=== PATIENT | male | born 1945 | race Caucasian/White ===

== ENCOUNTER 2016-05-03 10:53 | Inpatient (IN) ==
[2016-05-03] MEDS ORDERED: 0.9 % Sodium Chloride 1,000 ML IVC ONE (11:37)
[2016-05-03 11:49] LABS: Basophils % 0.3 %; Eosinophils # 0.2 K/mcL (0.0-0.6); Eosinophils % 1.5 %; Hematocrit 38.1 % (37.5-50.1); Hemoglobin 13.6 g/dL (12.9-16.9); Immature Granulocytes % 0.3 % (0-4); Lymphocytes # 1.3 K/mcL (0.6-4.6); Lymphocytes % 13.1 %; Mean Corpuscular HGB Conc 35.7 g/dL (31.6-35.5); Mean Corpuscular Hemoglobin 31.6 pg (28.0-33.3); Mean Corpuscular Volume 88.4 fL (83.0-100.0); Mean Platelet Volume 9.2 fL (9.4-12.4); Monocytes # 0.7 K/mcL (0.0-1.3); Monocytes % 7.5 %; Neutrophils # 7.5 K/mcL (1.6-8.9); Platelet Count 156 K/mcL (140-400); Red Blood Count 4.31 M/mcL (4.19-5.50); Red Cell Distribution Width 13.2 % (11.5-14.5); Segmented Neutrophils % 77.3 %
--- NOTE | 2016-05-03 11:54 | Emergency Department Note ---
Disposition Clinical Impression: Candidiasis of mouth Failure to thrive Qualifiers: Failure to thrive age range: in adult Qualified Code(s): R62.7 - Adult failure to thrive Dysphagia Qualifiers: Dysphagia type: other dysphagia Qualified Code(s): R13.19 - Other dysphagia Disposition: Admitted As Inpatient [facility] [Primary Care Provider[facility] - Forms: ED Satisfaction Letter Weakness HPI - General Chief complaint: ED Shortness of Breath/Dyspnea Stated complaint: decreased intake, CA patient Time Seen by Provider: 05/03/16 11:10 Source: patient Limitations: physical limitation Nursing Notes Reviewed: Yes Vital Signs Reviewed: Yes - History of Present Illness HPI Narrative: Patient is a 70-year-old male who is being treated for tonsillar cancer is complaining of inability to swallow and decreased by mouth intake. Onset (ago): day(s) (2) Duration: constant, gradually worsening Location: other (mouth/throat) Pain Scale: 3 Improves with: none Worsens with: none Context: history of similar Associated symptoms: Reports: loss of appetite. Denies: chest pain, dark stools , diaphoresis, nausea/vomiting, rash, shortness of breath - Related Data Home Medications Medication Instructions Recorded Confirmed Amlodipine Besylate/Benazepril 1 each PO DAILY 12/24/14 02/05/16 [Lotrel 10-20 mg Capsule] Aspirin Enteric Coated [Aspirin EC] 81 mg PO DAILY 12/24/14 02/05/16 Atorvastatin Calcium [Lipitor] 40 mg PO DAILY 12/24/14 02/05/16 Carvedilol [Coreg] 6.25 mg PO BID 12/24/14 02/05/16 Cholecalciferol (Vitamin D3) 1,000 unit PO DAILY 12/24/14 02/05/16 [Vitamin D3] Furosemide [Lasix] 40 mg PO DAILY 12/24/14 02/05/16 Lisinopril [Zestril] 40 mg PO DAILY 12/24/14 02/05/16 Magnesium Oxide [Magnesium] 400 mg PO DAILY 12/24/14 02/05/16 Potassium Chloride 10 meq PO NOW 12/24/14 02/05/16 Terazosin [Hytrin] 2 mg PO HS 12/24/14 02/05/16 Carvedilol [Coreg] 6.25 mg PO DAILY 12/26/15 02/05/16 Previous Rx's Medication Instructions Recorded Aspirin 81 mg PO DAILY tab.chew 12/25/14 Folic Acid 1 mg PO DAILY tablet 12/25/14 Dexamethasone [Decadron] 8 mg PO DAILY #24 tab 01/15/16 OLANZapine [Zyprexa] 5 mg PO HS #15 tablet 01/15/16 Omeprazole [PriLOSEC] 40 mg PO DAILY #30 capsule. 01/15/16 Ondansetron HCl 8 mg PO Q8H PRN #60 tablet 01/15/16 FentaNYL PATCH [Duragesic] 12 mcg TD Q72H #10 patch.td72 02/20/16 Polyethylene Glycol 3350 [MiraLAX 1 scoop PO DAILY #510 gm 02/20/16 Powder Bulk 17.9 Oz] Fluconazole [Diflucan] 100 mg PO DAILY #8 tablet 03/06/16 Lidocaine Viscous Oral Soln 15 ml MM QID PRN #100 ml 03/19/16 Magic Mouthwash 10 ml PO QID PRN #400 ml 03/19/16 Oxycodone HCl/Acetaminophen 1 each PO Q6H PRN #90 tablet 03/19/16 [Percocet 5-325 mg Tablet] Allergies Allergy/AdvReac Type Severity Reaction Status Date / Time No Known Allergies Allergy Verified 12/23/14 21:57 All systems ED: reviewed and negative except as stated. Constitutional: Reports: weakness. Denies: fever, chills Gastrointestinal: Denies: abdominal pain, nausea, vomiting Past Medical History - Past Medical History Source: patient, old records reviewed, nursing notes reviewed Medical history: Reports: cancer, cardiomyopathy, coronary artery disease, CVA, myocardial infarction, other Surgical history: Reports: coronary bypass (CABG), pacemaker/AICD Psychiatric history: Reports: no psych history - Social History Smoking Status: Former smoker Smokeless Tobacco Status: No Alcohol use: Reports: occasionally, recent Drug use: Reports: none Physical Exam - General Limitations: physical limitation General appearance: alert - Head Head exam: atraumatic, normocephalic, normal inspection - Eye Eye exam: Present: normal appearance, PERRL, EOMI - Expanded Eye Exam Pupils: Left: reactive - ENT ENT exam: other (Patient has severe thrush on his tongue and posterior pharynx) - Expanded ENT Exam External ear exam: Present: normal external inspection Mouth exam: Present: normal external inspection Teeth exam: Present: normal inspection Throat exam: Present: normal inspection - Neck Neck exam: Present: trachea midline, other (She will flex extend rotate his neck without difficulty) - Chest Chest inspection: Present: normal inspection, symmetric chest wall rise - Respiratory Respiratory exam: Present: normal lung sounds bilaterally - Cardiovascular Cardiovascular exam: Present: regular rate, normal rhythm, normal heart sounds - Abdominal Exam Abdominal exam: Present: soft, Non-Tender. Absent: tenderness, distention, guarding, rebound, rigidity - Extremities Exam Extremities exam: Present: normal inspection, full ROM. Absent: tenderness, pedal edema - Expanded Upper Extremity Exam Shoulder exam: Present: normal inspection, full ROM Arm exam: Present: normal inspection, full ROM Elbow exam: Present: normal inspection, full ROM Forearm/Wrist exam: Present: normal inspection, full ROM Hand exam: Present: normal inspection, full ROM Vascular exam: Normal: capillary refill, radial pulse - Expanded Lower Extremity Exam Hip/Pelvis exam: Present: normal inspection, full ROM Upper leg exam: Present: normal inspection, full ROM Knee exam: Present: normal inspection, full ROM Lower leg exam: Present: normal inspection, full ROM Ankle exam: Present: normal inspection, full ROM Foot/toe exam: Present: normal inspection, full ROM Neurovascular/Tendon exam: Absent: motor deficit, sensory deficit, tendon deficit - Back Exam Back exam: Present: normal inspection, full ROM. Absent: tenderness - Neurological Exam Neurological exam: Present: alert, oriented X3 - Expanded Neurological Exam Patient oriented to: Present: person, place, time Coma Scale Eye Opening: Spontaneous Coma Scale Motor Response: Obeys Commands Coma Scale Verbal Response: Oriented Coma Scale Total: 15 - Psychiatric Psychiatric exam: Present: normal affect, normal mood - Skin Skin exam: Present: warm, dry, intact, normal color Course Vital Signs Temperature 98.6 F 05/03/16 11:01 Pulse Rate 85 05/03/16 11:01 Respiratory Rate 18 05/03/16 11:01 Blood Pressure 121/65 05/03/16 11:01 O2 Sat by Pulse Oximetry 99 05/03/16 11:01 Temperature 98.6 F 05/03/16 11:15 Pulse Rate 64 05/03/16 12:12 Respiratory Rate 20 05/03/16 12:12 Blood Pressure 149/76 05/03/16 12:12 O2 Sat by Pulse Oximetry 100 05/03/16 12:12 Oxygen Delivery Oxygen Delivery Room Air Weakness - Lab Data Result diagrams: 05/03/16 11:42 05/03/16 11:42 Lab Results 05/03/16 05/03/16 05/03/16 Range/Units 11:42 11:42 11:42 WBC 9.7 (4.3-11.1) K/mcL RBC 4.31 (4.19-5.50) M/mcL Hgb 13.6 (12.9-16.9) g/dL Hct 38.1 (37.5-50.1) % MCV 88.4 (83.0-100.0) fL MCH 31.6 (28.0-33.3) pg MCHC 35.7 H (31.6-35.5) g/dL RDW 13.2 (11.5-14.5) % Plt Count 156 (140-400) K/mcL MPV 9.2 L (9.4-12.4) fL Immature Gran % 0.3 (0-4) % Seg Neutrophils % 77.3 % Lymphocytes % 13.1 % Monocytes % 7.5 % Eosinophils % 1.5 % Basophils % 0.3 % Neutrophils # 7.5 (1.6-8.9) K/mcL Lymphocytes # 1.3 (0.6-4.6) K/mcL Monocytes # 0.7 (0.0-1.3) K/mcL Eosinophils # 0.2 (0.0-0.6) K/mcL Basophils # 0.0 (0.0-0.2) K/mcL PT 12.7 H (9.4-12.1) Seconds INR 1.2 APTT 29.7 (26.0-36.0) Seconds Sodium 139 (136-145) mEq/L Potassium 3.4 L (3.5-4.5) mEq/L Chloride 100 (98-109) mEq/L Carbon Dioxide 22 (19-29) mEq/L BUN 16 (8-26) mg/dL Creatinine 1.19 (0.72-1.25) mg/dL Est GFR ( Amer) > 60 (> 60) Est GFR (Non-Af Amer) > 60 (> 60) BUN/Creatinine Ratio 13 (6-26) Glucose 88 (70-99) mg/dL Calculated Osmolality 289 (280-300) Calcium 10.2 (8.6-10.8) mg/dL Total Bilirubin 0.9 (0.2-1.2) mg/dL Direct Bilirubin 0.4 (0.0-0.5) mg/dL Indirect Bilirubin 0.5 (0.0-1.2) mg/dL AST 14 (5-34) Units/L ALT 9 (0-55) Units/L Alkaline Phosphatase 75 (38-126) Units/L Serum Total Protein 7.7 (6.0-8.3) g/dL Albumin 3.9 (3.5-5.0) g/dL Globulin 3.8 H (2.4-3.5) g/dL Albumin/Globulin Ratio 1.0 L (1.1-2.2) Amylase 16 L (25-125) Units/L Lipase 27 (8-78) Units/L
[2016-05-03 12:00] LABS: INR 1.2; Prothrombin Time 12.7 Seconds (9.4-12.1)
[2016-05-03 12:03] LABS: Activated Partial Thrombo Time 29.7 Seconds (26.0-36.0)
[2016-05-03 12:04] LABS: Alanine Aminotransferase 9 Units/L (0-55); Albumin 3.9 g/dL (3.5-5.0); Alkaline Phosphatase 75 Units/L (38-126); Amylase 16 Units/L (25-125); Aspartate Amino Transferase 14 Units/L (5-34); BUN/Creatinine Ratio 13 (6-26); Bilirubin,Direct 0.4 mg/dL (0.0-0.5); Bilirubin,Indirect 0.5 mg/dL (0.0-1.2); Bilirubin,Total 0.9 mg/dL (0.2-1.2); Blood Urea Nitrogen 16 mg/dL (8-26); Calcium 10.2 mg/dL (8.6-10.8); Carbon Dioxide 22 mEq/L (19-29); Chloride 100 mEq/L (98-109); Globulin 3.8 g/dL (2.4-3.5); Glucose 88 mg/dL (70-99); Lipase 27 Units/L (8-78); Osmolality,Calculated 289 (280-300); Potassium 3.4 mEq/L (3.5-4.5); Sodium 139 mEq/L (136-145); Total Protein 7.7 g/dL (6.0-8.3); eGFR For African Americans > 60 (> 60); eGFR For Non-African Americans > 60 (> 60)
[2016-05-03] MEDS ORDERED: Fluconazole 200 MG/100 ML 200 MG/100 ML BAG IVPB STA (15:11)
[2016-05-03] MEDS ORDERED: Ondansetron 4 MG/2 ML VIAL IVP PRN (17:42)
[2016-05-03] MEDS ORDERED: *HR* Morphine 2 MG/ML SYRINGE IVP PRN (17:42)
[2016-05-03] MEDS ORDERED: Naloxone 0.4 MG/ML INJ IVP PRN (17:42)
[2016-05-03] MEDS ORDERED: Ketorolac 30 MG/ML VIAL IVP PRN (17:42)
[2016-05-03] MEDS ORDERED: *HR* FentaNYL PATCH 12 MCG PATCH TD SCH (17:45)
--- NOTE | 2016-05-03 18:19 | Internal Med History&Physical ---
<Tali Kerr M - Last Filed: 05/03/16 23:21> Date of Encounter: 05/03/16 Time of Encounter: 18:13 Assessment and Plan (1) Candidiasis of mouth Current visit: Yes Status: Acute Patient reporting mouth pain and inability to swallow food or liquid. On exam, thick white plaques and patches on tongue and soft and hard palate of mouth. IV hydration with 0.9 normal saline at 100 mL per hour IV fluconazole 200 mg daily Nystatin swish and spit Nothing by mouth IV Toradol and morphine for pain Will convert PO meds to IV (2) Dysphagia Current visit: Yes Status: Acute Patient unable to swallow due to severe stomatitis with candidiasis of his mouth. Nothing by mouth IV hydration with 0.9 normal saline at 100 mL per hour We will convert PO medications to IV Nutrition consult Qualifiers: Dysphagia type: other dysphagia Qualified Code(s): R13.19 - Other dysphagia (3) Failure to thrive Current visit: Yes Status: Acute Patient reports he has been unable to eat solid food for months due to the stomatitis which is a side effect of his chemo/radiation treatments for tonsillar cancer. It seems that he misunderstood prescription for Diflucan and only took 3 pills, maybe he did not realize he had to fill the rest of the prescription at the pharmacy. He has gone from 175 pounds to 135 pounds in the last 6 months. IV hydration with 0.9 normal saline at 100 mL per hour. Consult to nutrition for parenteral nutrition. Qualifiers: Failure to thrive age range: in adult Qualified Code(s): R62.7 - Adult failure to thrive (4) Hypertension Current visit: No Status: Acute Holding PO medications as patient unable to swallow. 2.5mg Metoprolol IVP Q6 PRN. Qualifiers: Hypertension type: essential hypertension Qualified Code(s): I10 - Essential (primary) hypertension (5) Hypokalemia Current visit: Yes Status: Acute Potassium of 3.4. Patient usually takes potassium supplement at home, however he has been unable to swallow for the last 3 days and has not taken any medication. We will give 20 mEq of IV potassium. Recheck chemistry tomorrow morning. (6) DVT prophylaxis Current visit: No Status: Acute Ambulate with assistance anti-embolic stockings Lovenox 40mg SQ daily Internal Medicine - H&P: HPI Chief complaint: mouth pain Admitted From: Emergency Dept Plans for Post Hospital Care: Home History of present illness: Mr. Manning is a 70 year old male with hypertension, hyperlipidemia, CVA with left sided residual, coronary artery disease status post CABG, cardiomyopathy with AICD/pacemaker, recent history of tonsillar cancer with completion of chemotherapy and radiation treatments on March 20 who presented to the emergency department this morning with complaints of mouth pain and inability to swallow. Patient reports he has had trouble swallowing food for months, and has been taking ensures and drinking liquids to stay hydrated, he reports 3 days ago he stopped being able to swallow water because of the mouth pain and swelling. He reports he is feeling weak because he has not had much to eat or drink. He reports some lightheadedness occasionally. He denies any chest pain , palpitations, shortness of breath. He denies any nausea, vomiting, abdominal pain, diarrhea. He reports he was given Magic mouthwash, and "3 pills" to take for his mouth sores by the oncologists, he reports he only took 3 days of pills and ran out. He had a follow-up appointment with his oncologist a few weeks ago , but could not make it and did not reschedule. Evaluation in the emergency department... On exam patient is alert and oriented, in no distress, his tongue has thick white plaque in patches thicker in the back of the mouth, he also has white patches on the upper soft palate and hard palate. His heart is regular rate and rhythm, lungs are clear bilaterally to auscultation. Past Med Surg Social Fam HX - Past Medical History Medical history: cancer (tonsillar CA s/p chemo/radiation), cardiomyopathy, coronary artery disease, CVA (with left sided residual facial droop and weakness ), hyperlipidemia, hypertension, myocardial infarction, other Psychiatric history: no psych history - Past Surgical History Surgical History: coronary bypass (CABG), pacemaker/AICD - Social History Smoking Status: Former smoker Smokeless Tobacco Status: No Alcohol use: occasionally, recent Drug use: none - Family History Father Living Status: Hx Family Neurologic Disorders: Yes (cerebral hemorrhage) Mother Living Status: Internal Medicine - H&P: Meds Carvedilol [Coreg] 6.25 mg PO BID 12/24/14 [History] Furosemide [Lasix] 40 mg PO DAILY 12/24/14 [History] Magnesium Oxide [Magnesium] 400 mg PO DAILY 12/24/14 [History] Potassium Chloride 10 meq PO DAILY 12/24/14 [History] Terazosin [Hytrin] 2 mg PO HS 12/24/14 [History] Aspirin 81 mg PO DAILY tab.chew 12/25/14 [Rx] Ondansetron HCl 8 mg PO Q8H PRN #60 tablet 01/15/16 [Rx] FentaNYL PATCH [Duragesic] 12 mcg TD Q72H #10 patch.td72 02/20/16 [Rx] Lidocaine Viscous Oral Soln 15 ml MM QID PRN #100 ml 03/19/16 [Rx] Amlodipine [Norvasc] 10 mg PO DAILY 05/03/16 [History] Oxycodone HCl/Acetaminophen [Percocet 5-325 mg Tablet] 1 tab PO Q6H PRN [History] Polyethylene Glycol 3350 [MiraLAX Powder Bulk 17.9 Oz] 17 gm PO DAILY 05/03/16 [ History] Simvastatin [Zocor] 40 mg PO DAILY 05/03/16 [History] Allergies No Known Allergies Allergy (Verified 12/23/14 21:57) All Systems PM: A 10-system review of systems was performed and is negative for pertinent findings except as documented above in the HPI. - Constitutional Constitutional: weakness, weight loss, no chills, no fever(s), no night sweats - EENT Eyes: no change in vision, no discharge, no pain, no photophobia Ears: no ear discharge, no ear pain, no tinnitus Nose, mouth and throat: dry mouth, dysphagia, mouth lesions, mouth pain, sore throat, no nasal discharge, no neck pain - Cardiovascular Cardiovascular ROS IM: lightheadedness, no chest pain, no diaphoresis, no dyspnea, no palpitations, no syncope - Respiratory Respiratory: no cough, no dyspnea, no wheezing, no excessive phlegm production - Gastrointestinal Gastrointestinal: no abdominal pain, no diarrhea, no hematemesis, no hematochezia, no melena, no nausea, no vomiting - Musculoskeletal Musculoskeletal ROS IM: no numbness, no tingling - Integumentary Integumentary IM: no rash, no unusual bruising - Neurological Neurological ROS: no confusion, no convulsions, no focal weakness, no numbness, no tingling, no tremor(s) - Hematologic/Lymphatic Hematologic/Lymphatic: no easy bruising - Constitutional Vitals: Temp Pulse Resp BP Pulse Ox 98.6 F 72 20 140/76 96 05/03/16 11:15 05/03/16 16:57 05/03/16 17:30 05/03/16 17:30 05/03/16 16:57 General appearance: Present: A&O X 3, no acute distress - Head Head exam: Present: atraumatic, normocephalic - Eye Eye exam: Present: PERRL, conjuntiva pink, sclera anicteric Pupils: Present: PERRL - ENT ENT exam: Present: mucous membranes dry Additional comments: Sick white plaques and patches on tongue and soft palate and hard palate. - Neck Neck exam general surgery: Present: supple, trachea midline. Absent: lymphadenopathy - Respiratory Respiratory exam: Present: CTAB. Absent: accessory muscle use, rales, rhonchi, wheezes - Cardiovascular Cardiovascular exam: Present: irregular rhythm, +S1, +S2. Absent: diastolic murmur, gallop, rubs, systolic murmur - GI/Abdominal GI/Abdominal exam: Present: normal bowel sounds, soft, no peritoneal signs. Absent: distended, tenderness - Extremities Exam Extremities exam: Present: warm, radial pulses palpable and symetrical. Absent : calf tenderness, cyanotic, pedal edema - Neurological Exam Neurological exam: Present: CN II-XII intact, oriented X3, no focal deficits, facial droop (left sided, chronic). Absent: pronater drift, speech deficit - Skin Skin exam: Present: dry, intact Internal Med - H&P Results - Labs CBC & Chem 7: 05/03/16 11:42 05/03/16 11:42 <Kalen Munguia - Last Filed: 05/04/16 08:08> Date of Encounter: 05/04/16 Internal Medicine - H&P: HPI History of present illness: Mr. Manning is a 70 year old male All Systems PM: A 10-system review of systems was performed and is negative for pertinent findings except as documented above in the HPI. - Constitutional Vitals: Temp Pulse Resp BP Pulse Ox 98 F 64 14 155/67 95 05/04/16 06:48 05/04/16 06:48 05/04/16 06:48 05/04/16 06:48 05/04/16 06:48 Internal Med - H&P Results - Labs CBC & Chem 7: 05/04/16 06:29 05/04/16 06:29 Labs: Short CBC 05/04/16 Range/Units 06:29 WBC 7.2 (4.3-11.1) K/mcL Hgb 11.8 L D (12.9-16.9) g/dL Hct 34.0 L (37.5-50.1) % Plt Count 141 (140-400) K/mcL Neutrophils # 5.3 (1.6-8.9) K/mcL BMP 05/04/16 06:29 Sodium 139 Potassium 3.4 L Chloride 105 Carbon Dioxide 22 BUN 12 Creatinine 0.82 Glucose 73 Calcium 9.0 - Attending Attestation I examined this patient and my medical decision-making was reviewed with the Advanced Practice Provider. I agree with the documented findings, disposition and treatment plan as described except to the extent set forth below. On exam I noticed thick copious white-Green deposits on the tongue and palate. Heart is regular rhythm S1-S2, lungs are clear. In addition to fluconazole will order aggressive oral care. I have discussed the possibility of needing a PEG tube. The patient currently would like to hold off. We will reassess his oral intake after treating his oral and esophageal candidiasis.
[2016-05-03] MEDS ORDERED: Potassium Chloride 20 MEQ, Lidocaine 1% 2 ML in D5% in Water 250 ML IVPB ONE (18:32)
[2016-05-03] MEDS ORDERED: *HR* Metoprolol 5 MG/5 ML VIAL IVP PRN (19:15)
[2016-05-03] MEDS: Magic Mouthwash 10 ML UD Cup PO SCH (19:44)
[2016-05-03] MEDS: 0.9 % Sodium Chloride 1,000 ML IVC SCH (19:45)
[2016-05-03] MEDS: Nystatin SUSP 5 ML UD.LIQ BC SCH ×2 (19:47→19:54)
[2016-05-04] MEDS: *HR* Enoxaparin 40 MG/0.4 ML SYRINGE SQ SCH (05:54)
[2016-05-04 07:33] LABS: Basophils % 0.4 %; Eosinophils # 0.3 K/mcL (0.0-0.6); Eosinophils % 3.6 %; Immature Granulocytes % 0.3 % (0-4); Lymphocytes # 0.9 K/mcL (0.6-4.6); Lymphocytes % 12.4 %; Mean Corpuscular HGB Conc 34.7 g/dL (31.6-35.5); Mean Corpuscular Hemoglobin 31.6 pg (28.0-33.3); Mean Corpuscular Volume 90.9 fL (83.0-100.0); Mean Platelet Volume 9.7 fL (9.4-12.4); Monocytes # 0.7 K/mcL (0.0-1.3); Neutrophils # 5.3 K/mcL (1.6-8.9); Platelet Count 141 K/mcL (140-400); Red Blood Count 3.74 M/mcL (4.19-5.50); Red Cell Distribution Width 13.4 % (11.5-14.5); Segmented Neutrophils % 73.3 %
[2016-05-04 07:36] LABS: Hemoglobin 11.8 g/dL (12.9-16.9)
[2016-05-04 07:42] LABS: BUN/Creatinine Ratio 15 (6-26); Blood Urea Nitrogen 12 mg/dL (8-26); Carbon Dioxide 22 mEq/L (19-29); Chloride 105 mEq/L (98-109); Glucose 73 mg/dL (70-99); Osmolality,Calculated 286 (280-300); Potassium 3.4 mEq/L (3.5-4.5); Sodium 139 mEq/L (136-145); eGFR For African Americans > 60 (> 60); eGFR For Non-African Americans > 60 (> 60)
[2016-05-04] MEDS ORDERED: Potassium Chloride 20 MEQ, Lidocaine 1% 2 ML in D5% in Water 250 ML IVPB ONE (08:29)
[2016-05-04] MEDS: Magic Mouthwash 10 ML UD Cup PO SCH ×3 (09:30→20:32)
[2016-05-04] MEDS: Nystatin SUSP 5 ML UD.LIQ BC SCH ×4 (09:30→20:31)
[2016-05-04] MEDS: 0.9 % Sodium Chloride 1,000 ML IVC SCH ×2 (12:43→22:43)
--- NOTE | 2016-05-04 13:15 | Internal Med Progress Note ---
Date of Encounter: 05/04/16 Time of Encounter: 13:12 - Assessment and plan (1) Candidiasis of mouth Current Visit: Yes Status: Acute Assessment and plan: Reports of improvement in symptoms compared to yesterday, tolerated sips of water continue IV fluids Fluconazole 200mg IV qd Nyastatin swish and swallow-patient demonstrates understanding of how to use this medication and states it has been helping him Will start clear liquid diet continue pain control (2) Dysphagia Current Visit: Yes Status: Acute Assessment and plan: Secondary to stomatitis with candidiasis of mouth due to chemotherapy continue IV fluids tolerating sips of water will advance to clear liquid diet f/u nutrition consult Qualifiers: Dysphagia type: other dysphagia Qualified Code(s): R13.19 - Other dysphagia (3) Failure to thrive Current Visit: Yes Status: Acute Assessment and plan: Unable to tolerate much PO intake due to pain from the chem/radiation effects continue IV fluids nutrition consult Qualifiers: Failure to thrive age range: in adult Qualified Code(s): R62.7 - Adult failure to thrive (4) Hypokalemia Current Visit: Yes Status: Acute Assessment and plan: K supplemented continue to monitor electrolytes and replace as needed (5) DVT prophylaxis Current Visit: No Status: Acute Assessment and plan: Lovenox SQ (6) Hypertension Current Visit: No Status: Acute Assessment and plan: Holding PO meds at this time Metoprolol 2.5mg IV q6h AMBROCIO will resume PO meds if able to tolerate PO diet well. Qualifiers: Hypertension type: essential hypertension Qualified Code(s): I10 - Essential (primary) hypertension (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 Resting in bed and reports of feeling better compared to previous day. States the pain is significantly better and he has been taking sips of water. Denies any nausea at this time. - Constitutional Vitals: Temp Pulse Resp BP Pulse Ox 98.1 F 56 15 153/67 98 05/04/16 11:54 05/04/16 11:54 05/04/16 11:54 05/04/16 11:54 05/04/16 11:54 General appearance: Present: cooperative, A&O X 3, pleasant, no acute distress, answers questions appropriately - Head Head exam: Present: atraumatic, normocephalic - Eye Eye exam: Present: conjuntiva pink, sclera anicteric - ENT Additional comments: white plaques and patches on tongue and soft palate - Respiratory Respiratory exam: Present: CTAB. Absent: accessory muscle use, rales, rhonchi, wheezes - Cardiovascular Cardiovascular exam: Present: RRR, +S1, +S2. Absent: diastolic murmur, gallop, rubs, systolic murmur - GI/Abdominal GI/Abdominal exam: Present: normal bowel sounds, soft, no peritoneal signs. Absent: distended, tenderness - Extremities Exam Extremities exam: Present: pedal edema, warm, radial pulses palpable and symetrical. Absent: calf tenderness, tenderness - Neurological Exam Neurological exam: Present: alert, oriented X3 - Psychiatric Psychiatric exam: Present: normal affect, normal mood Internal Medicine: Result - Labs CBC & Chem 7: 05/04/16 06:29 05/04/16 06:29 Labs: Short CBC 05/04/16 Range/Units 06:29 WBC 7.2 (4.3-11.1) K/mcL Hgb 11.8 L D (12.9-16.9) g/dL Hct 34.0 L (37.5-50.1) % Plt Count 141 (140-400) K/mcL Neutrophils # 5.3 (1.6-8.9) K/mcL BMP 05/04/16 06:29 Sodium 139 Potassium 3.4 L Chloride 105 Carbon Dioxide 22 BUN 12 Creatinine 0.82 Glucose 73 Calcium 9.0 - ABG Interpretation ABG results: PT/INR, D-dimer PT 12.7 Seconds (9.4-12.1) H 05/03/16 11:42 Consult Discharge Plan - Plan [facility]errals: [facility] [Primary Care Provider] -
[2016-05-04] MEDS: *HR* Metoprolol 5 MG/5 ML VIAL IVP SCH ×2 (14:16→16:59)
[2016-05-04] MEDS: Fluconazole 200 MG/100 ML 200 MG/100 ML BAG IVPB SCH (16:59)
[2016-05-05] MEDS: *HR* Metoprolol 5 MG/5 ML VIAL IVP SCH ×3 (00:22→11:45)
[2016-05-05 05:11] LABS: Basophils % 0.6 %; Eosinophils # 0.2 K/mcL (0.0-0.6); Eosinophils % 4.3 %; Hematocrit 33.4 % (37.5-50.1); Hemoglobin 11.4 g/dL (12.9-16.9); Immature Granulocytes % 0.2 % (0-4); Lymphocytes # 0.7 K/mcL (0.6-4.6); Lymphocytes % 12.8 %; Mean Corpuscular HGB Conc 34.1 g/dL (31.6-35.5); Mean Corpuscular Hemoglobin 30.7 pg (28.0-33.3); Mean Platelet Volume 9.4 fL (9.4-12.4); Monocytes # 0.6 K/mcL (0.0-1.3); Monocytes % 11.5 %; Neutrophils # 3.8 K/mcL (1.6-8.9); Platelet Count 141 K/mcL (140-400); Red Blood Count 3.71 M/mcL (4.19-5.50); Red Cell Distribution Width 13.1 % (11.5-14.5); Segmented Neutrophils % 70.6 %
[2016-05-05 05:27] LABS: BUN/Creatinine Ratio 11 (6-26); Blood Urea Nitrogen 8 mg/dL (8-26); Carbon Dioxide 24 mEq/L (19-29); Chloride 106 mEq/L (98-109); Glucose 82 mg/dL (70-99); Magnesium 1.4 mg/dL (1.6-2.6); Osmolality,Calculated 279 (280-300); Phosphorous 2.4 mg/dL (2.3-4.7); Sodium 136 mEq/L (136-145); eGFR For African Americans > 60 (> 60); eGFR For Non-African Americans > 60 (> 60)
[2016-05-05] MEDS: *HR* Enoxaparin 40 MG/0.4 ML SYRINGE SQ SCH (05:51)
[2016-05-05] MEDS: Magic Mouthwash 10 ML UD Cup PO SCH ×3 (07:52→20:30)
[2016-05-05] MEDS: Nystatin SUSP 5 ML UD.LIQ BC SCH ×4 (07:52→20:30)
[2016-05-05] MEDS ORDERED: Magnesium Sulfate 2 GM in D5% in Water 100 ML IVPB ONE (08:03)
[2016-05-05] MEDS ORDERED: Potassium Chloride 40 MEQ, Lidocaine 1% 2 ML in D5% in Water 500 ML IVPB ONE (08:03)
[2016-05-05] MEDS ORDERED: *HR* OxyCODONE/APAP 5/325 TABLET PO PRN (12:05)
--- NOTE | 2016-05-05 12:06 | Internal Med Progress Note ---
Date of Encounter: 05/05/16 Time of Encounter: 12:05 - Assessment and plan (1) Candidiasis of mouth Current Visit: Yes Status: Acute Assessment and plan: Reports of improvement in symptoms compared to yesterday, tolerated sips of water continue IV fluids Fluconazole 200mg IV qd Nyastatin swish and swallow-patient demonstrates understanding of how to use this medication and states it has been helping him Will obtain a speech therapy eval and initiate diet as per their recommendations continue pain control (2) Dysphagia Current Visit: Yes Status: Acute Assessment and plan: Secondary to stomatitis with candidiasis of mouth due to chemotherapy continue IV fluids tolerating sips of water will advance to clear liquid diet f/u nutrition consult f/u speech therapy evaluation Qualifiers: Dysphagia type: other dysphagia Qualified Code(s): R13.19 - Other dysphagia (3) Failure to thrive Current Visit: Yes Status: Acute Assessment and plan: Unable to tolerate much PO intake due to pain from the chem/radiation effects continue IV fluids nutrition consult f/u speech therapy evaluation Qualifiers: Failure to thrive age range: in adult Qualified Code(s): R62.7 - Adult failure to thrive (4) Hypokalemia Current Visit: Yes Status: Acute Assessment and plan: K supplemented continue to monitor electrolytes and replace as needed (5) DVT prophylaxis Current Visit: No Status: Acute Assessment and plan: Lovenox SQ (6) Hypertension Current Visit: No Status: Acute Assessment and plan: BP within acceptable range restarted home meds continue to monitor Qualifiers: Hypertension type: essential hypertension Qualified Code(s): I10 - Essential (primary) hypertension (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 Resting in chair and reports of feeling better. tolerated clear liquid diet well and states his pain is controlled. - Constitutional Vitals: Temp Pulse Resp BP Pulse Ox 98 F 72 20 163/73 99 05/05/16 10:56 05/05/16 10:56 05/05/16 10:56 05/05/16 10:56 05/05/16 10:56 General appearance: Present: cooperative, A&O X 3, pleasant, no acute distress, answers questions appropriately - Head Head exam: Present: atraumatic, normocephalic - Eye Eye exam: Present: normal appearance, conjuntiva pink, sclera anicteric - ENT Additional comments: white plaques on tongue - Respiratory Respiratory exam: Absent: respiratory distress - Cardiovascular Cardiovascular exam: Present: RRR, +S1, +S2 - GI/Abdominal GI/Abdominal exam: Present: normal bowel sounds, soft, no peritoneal signs. Absent: distended, tenderness - Extremities Exam Extremities exam: Present: warm, radial pulses palpable and symetrical. Absent : calf tenderness, cyanotic, pedal edema - Neurological Exam Neurological exam: Present: alert, oriented X3 - Psychiatric Psychiatric exam: Present: normal affect, normal mood Internal Medicine: Result - Labs CBC & Chem 7: 05/05/16 04:49 05/05/16 04:49 Labs: Short CBC 05/05/16 Range/Units 04:49 WBC 5.4 (4.3-11.1) K/mcL Hgb 11.4 L (12.9-16.9) g/dL Hct 33.4 L (37.5-50.1) % Plt Count 141 (140-400) K/mcL Neutrophils # 3.8 (1.6-8.9) K/mcL BMP 05/05/16 04:49 Sodium 136 Potassium 3.0 L Chloride 106 Carbon Dioxide 24 BUN 8 Creatinine 0.75 Glucose 82 Calcium 8.0 L - ABG Interpretation ABG results: PT/INR, D-dimer PT 12.7 Seconds (9.4-12.1) H 05/03/16 11:42 - VTE Documentation of Mechanical Device: Graduated compression elastic hosiery Consult Discharge Plan - Plan [facility] Provider[facility] - 05/15/16 8:15 am
[2016-05-05] MEDS ORDERED: *HR* Metoprolol 5 MG/5 ML VIAL IVP PRN (12:07)
[2016-05-05] MEDS: amLODIPine 5 MG TABLET PO SCH (12:58)
[2016-05-05] MEDS: Aspirin 81 MG TAB.CHEW PO SCH (12:58)
[2016-05-05] MEDS: Fluconazole 200 MG/100 ML 200 MG/100 ML BAG IVPB SCH (15:22)
[2016-05-06] MEDS: *HR* Enoxaparin 40 MG/0.4 ML SYRINGE SQ SCH (05:40)
[2016-05-06 06:04] LABS: Basophils % 0.5 %; Eosinophils # 0.1 K/mcL (0.0-0.6); Eosinophils % 3.5 %; Hematocrit 32.2 % (37.5-50.1); Immature Granulocytes % 0.3 % (0-4); Lymphocytes # 0.7 K/mcL (0.6-4.6); Lymphocytes % 16.5 %; Mean Corpuscular HGB Conc 34.2 g/dL (31.6-35.5); Mean Corpuscular Hemoglobin 30.8 pg (28.0-33.3); Mean Corpuscular Volume 90.2 fL (83.0-100.0); Mean Platelet Volume 9.8 fL (9.4-12.4); Monocytes # 0.6 K/mcL (0.0-1.3); Monocytes % 14.2 %; Neutrophils # 2.6 K/mcL (1.6-8.9); Platelet Count 141 K/mcL (140-400); Red Blood Count 3.57 M/mcL (4.19-5.50)
[2016-05-06 06:27] LABS: BUN/Creatinine Ratio 10 (6-26); Blood Urea Nitrogen 9 mg/dL (8-26); Calcium 9.1 mg/dL (8.6-10.8); Carbon Dioxide 26 mEq/L (19-29); Chloride 102 mEq/L (98-109); Glucose 120 mg/dL (70-99); Magnesium 1.8 mg/dL (1.6-2.6); Osmolality,Calculated 282 (280-300); Potassium 3.5 mEq/L (3.5-4.5); Sodium 136 mEq/L (136-145); eGFR For African Americans > 60 (> 60); eGFR For Non-African Americans > 60 (> 60)
[2016-05-06] MEDS: amLODIPine 5 MG TABLET PO SCH (08:37)
[2016-05-06] MEDS: Magic Mouthwash 10 ML UD Cup PO SCH (08:37)
[2016-05-06] MEDS: Nystatin SUSP 5 ML UD.LIQ BC SCH (08:38)
[2016-05-06] MEDS: Aspirin 81 MG TAB.CHEW PO SCH (08:38)
[2016-05-06] MEDS ORDERED: Magnesium Oxide 400 MG TABLET PO SCH (09:00)
[2016-05-06] MEDS ORDERED: Furosemide 40 MG TABLET PO SCH (09:00)
--- NOTE | 2016-05-06 10:04 | Discharge Summary ---
Date of Encounter: 05/06/16 Time of Encounter: 10:01 - Discharge Diagnosis (1) Candidiasis of mouth Priority: Primary Status: Acute (2) Dysphagia Priority: Primary Status: Resolved Qualifiers: Dysphagia type: oropharyngeal phase Qualified Code(s): R13.12 - Dysphagia, oropharyngeal phase (3) Tonsillar cancer Priority: Secondary Status: Chronic (4) CAD (coronary artery disease) Priority: Secondary Status: Chronic Qualifiers: Coronary Disease-Associated Artery/Lesion type: bypass graft [place] vs. transplanted heart: [place] heart Associated angina: without angina Qualified Code(s): I25.810 - Atherosclerosis of coronary artery bypass graft(s) without angina pectoris (5) CVA, old, hemiparesis Priority: Secondary Status: Chronic (6) Cardiomyopathy Priority: Secondary Status: Chronic Qualifiers: Cardiomyopathy type: ischemic Qualified Code(s): I25.5 - Ischemic cardiomyopathy (7) Hypertension Priority: Secondary Status: Chronic Qualifiers: Hypertension type: essential hypertension Qualified Code(s): I10 - Essential (primary) hypertension - Discharge Medications Prescriptions: Fluconazole [Diflucan] 200 mg PO DAILY #21 tab Magic Mouthwash 10 ml PO TID #240 ml Nystatin [Nystatin Suspension] 100,000 units PO QID #120 ml Home Medications: Carvedilol [Coreg] 6.25 mg PO BID 12/24/14 [History] Furosemide [Lasix] 40 mg PO DAILY 12/24/14 [History] Magnesium Oxide [Magnesium] 400 mg PO DAILY 12/24/14 [History] Potassium Chloride 10 meq PO DAILY 12/24/14 [History] Terazosin [Hytrin] 2 mg PO HS 12/24/14 [History] Aspirin 81 mg PO DAILY tab.chew 12/25/14 [Rx] Ondansetron HCl 8 mg PO Q8H PRN #60 tablet 01/15/16 [Rx] FentaNYL PATCH [Duragesic] 12 mcg TD Q72H #10 patch.td72 02/20/16 [Rx] Lidocaine Viscous Oral Soln 15 ml MM QID PRN #100 ml 03/19/16 [Rx] Amlodipine [Norvasc] 10 mg PO DAILY 05/03/16 [History] Oxycodone HCl/Acetaminophen [Percocet 5-325 mg Tablet] 1 tab PO Q6H PRN [History] Polyethylene Glycol 3350 [MiraLAX Powder Bulk 17.9 Oz] 17 gm PO DAILY 05/03/16 [ History] Simvastatin [Zocor] 40 mg PO DAILY 05/03/16 [History] Fluconazole [Diflucan] 200 mg PO DAILY #21 tab 05/06/16 [Rx] Magic Mouthwash 10 ml PO TID #240 ml 05/06/16 [Rx] Nystatin [Nystatin Suspension] 100,000 units PO QID #120 ml 05/06/16 [Rx] Allergies/Adverse Reactions: Allergies No Known Allergies Allergy (Verified 12/23/14 21:57) Date of admission: 05/03/16 16:43 [facility] care physician: [facility] Consults: 05/03/16 18:29 Consult to Nutrition [CONS] Routine Comment: Consulting Provider: NUTRITION Reason for Dietary Consult: TPN Start and Manage 05/03/16 18:46 Consult to Psychology Associate [CONS] Routine Reason for SW Consult: POSSIBLE NEED FOR OUT PATIENT SERVICES 05/05/16 12:01 Consult to Speech Therapy [CONS] Routine Comment: Evaluate, develop and implement POC Reason for Consult: Swallow evaluation Call Completed: No Discharging clinician: Concepcion Campos Anticipated date of discharge: 05/06/16 - Patient Status Disposition: Home, Self-Care Condition: Fair Functional capacity at discharge: independent ambulation Overall status at discharge: patient is progressing back to baseline - Discharge Instructions Instructions: Oral Candidiasis (GEN), Chronic Dysphagia (DC) Follow [facility] With: [facility] [Primary Care Provider[facility] - 05/15/16 8:15 am - Diet and Activity Activity: resume usual activities as tolerated Diet: other (mechanical soft diet, thin liquids) Hospital course: Mr. Manning is a 70 year old male with history of tonsillar cancer status post radiation, was admitted with severe dysphagia and oropharyngeal candidiasis. He was noted to have poor oral intake, failure to thrive due to these problems including severe pain. He was started on IV fluconazole along with nystatin swish and swallow/magic mouthwash and pain control. Swallow evaluation was done and patient is clear to have mechanically altered diet with thin liquids. He gradually improved on this regimen and was able to tolerate diet and his pain was much better controlled. He is able to swallow medications and he is medically stable for discharge on oral antifungals and outpatient follow-up. - Time Spent with Patient Total time spent providing and/or coordinating discharge services: Greater than 30 minutes (50 min) - Constitutional Vitals: Temp Pulse Resp BP Pulse Ox 98.6 F 71 17 133/66 95 05/06/16 07:23 05/06/16 07:23 05/06/16 07:23 05/06/16 07:23 05/06/16 07:23 General appearance: Present: A&O X 3, answers questions appropriately - ENT Additional comments: improved Candidiasis, no white plaques/erythema over tonsils, hard/soft palate, oropharynx - Respiratory Respiratory exam: Present: CTAB. Absent: accessory muscle use, rales, rhonchi, wheezes - VTE Documentation of Mechanical Device: Intermittent pneumatic compression device
[2016-05-06 11:23] VITALS: BP 133/78
== END 2016-05-06 12:19 | disposition home or self-care (01) | DRG 158 ==
LOC: EMEROO 10:53 → 3ANU 16:43 → SUATTDRO 16:43 → 3ANU 17:15
PROVIDERS: ADMIT Internal Medicine; ATTEND Internal Medicine

== ENCOUNTER 2017-08-29 16:09 | Inpatient (IN) ==
[2017-08-29] MEDS ORDERED: *HR* FentaNYL (PF) 100 MCG/2 ML VIAL IVP ONE (16:22)
[2017-08-29] MEDS ORDERED: 0.9 % Sodium Chloride 500 ML IVC ONE (16:22)
[2017-08-29] MEDS ORDERED: *HR* OxyCODONE Immed Rel 5 MG TABLET PO ONE (16:22)
--- NOTE | 2017-08-29 16:51 | Emergency Department Note ---
Disposition Clinical Impression: Right leg weakness, Gait abnormality, Unable to ambulate, Elevated troponin I level CAD (coronary artery disease) Qualifiers: Coronary Disease-Associated Artery/Lesion type: unspecified vessel or lesion type [place] vs. transplanted heart: [place] heart Associated angina: with unspecified angina Qualified Code(s): I25.119 - Atherosclerotic heart disease of [place] coronary artery with unspecified angina pectoris Disposition: Admitted As Inpatient Condition: Fair Time of Disposition: 19:39 General Adult HPI - General Chief complaint: ED General Medical Stated complaint: R Hip Pain Time Seen by Provider: 08/29/17 16:11 Source: EMS Mode of arrival: ambulatory Limitations: other Nursing Notes Reviewed: Yes Vital Signs Reviewed: Yes - History of Present Illness HPI Narrative: Patient is a 71-year-old male history of CABG, CAD, complaining of right hip pain. Patient has baseline weakness of his bilateral lower extremities, and a possible spinal cord injury from us a few months ago, he has been in a wheelchair since then for the last 2 weeks has been able to not walk in his right leg just started hurting worse today. He says he cannot move his leg although he does say he can wiggle his toes and feel sensation. He has no urinary incontinence no urinary retention or bowel incontinence. The patient was brought in initially to [facility] and had a troponin of 0.04 , they then transferred to the [place] urgent care by private vehicle he went there and they did a troponin that was elevated at 0.288 patient states she has no chest pain or shortness of breath. The patient says that his right hip is been hurting worse, he is not out of 10 pain, given oxycodone, but due to the troponin elevation they sent him to be evaluated for possible an NSTEMI. Onset (ago): hour(s) Location: right Pain Severity: severe Pain Scale: 8 Quality: aching Consistency: intermittent Improves with: nothing Worsens with: nothing - Related Data Home Medications Medication Instructions Recorded Confirmed Carvedilol [Coreg] 6.25 mg PO BID 12/24/14 08/29/17 Furosemide [Lasix] 40 mg PO DAILY 12/24/14 08/29/17 Magnesium Oxide [Magnesium] 400 mg PO DAILY 12/24/14 08/29/17 Potassium Chloride 10 meq PO DAILY 12/24/14 08/29/17 Terazosin [Hytrin] 2 mg PO HS 12/24/14 08/29/17 Oxycodone HCl/Acetaminophen 1 tab PO Q6H PRN 05/03/16 08/29/17 [Percocet 5-325 mg Tablet] Polyethylene Glycol 3350 [MiraLAX 17 gm PO DAILY 05/03/16 08/29/17 Powder Bulk 17.9 Oz] Simvastatin [Zocor] 40 mg PO DAILY 05/03/16 08/29/17 amLODIPine [Norvasc] 10 mg PO DAILY 05/03/16 08/29/17 Previous Rx's Medication Instructions Recorded Aspirin 81 mg PO DAILY tab.chew 12/25/14 Ondansetron HCl 8 mg PO Q8H PRN #60 tablet 01/15/16 FentaNYL PATCH [Duragesic] 12 mcg TD Q72H #10 patch.td72 02/20/16 Lidocaine Viscous Oral Soln 15 ml MM QID PRN #100 ml 03/19/16 Magic Mouthwash 10 ml PO TID #240 ml 05/06/16 Nystatin [Nystatin Suspension] 100,000 units PO QID #120 ml 05/06/16 Allergies Allergy/AdvReac Type Severity Reaction Status Date / Time No Known Allergies Allergy Verified 08/29/17 08:42 All systems ED: reviewed and negative except as stated. Review of Systems: As Per HPI Constitutional: Reports: weakness. Denies: fever, chills Eyes: Denies: eye pain ENT ED: Denies: ear pain Cardiovascular: Denies: chest pain, palpitations Respiratory: Denies: cough, dyspnea Gastrointestinal: Denies: abdominal pain, nausea Genitourinary: Denies: urgency Musculoskeletal: Reports: as per HPI, joint swelling, arthralgia Integumentary: Denies: rash, abrasion Neurological: Denies: headache, weakness Psychiatric: Denies: anxiety Past Medical History - Past Medical History Attestation: Yes The following information was validated with the patient. Medical history: Reports: cancer, cardiomyopathy, coronary artery disease, CVA, hyperlipidemia, hypertension, myocardial infarction, other Surgical history: Reports: coronary bypass (CABG), pacemaker/AICD Psychiatric history: Reports: no psych history - Social History Smoking Status: Former smoker Smokeless Tobacco Status: No Alcohol use: Reports: occasionally, recent Drug use: Reports: none Physical Exam Constitutional: NAD, vital signs reviewed and wnl Eyes: PERRLA, sclera anicteric ENT & Mouth: MM dry Neck: normal inspection, neck is supple Resp: CTA bilaterally, no resp distress CV: RRR, no m/g/r GI: normal inspection, soft, no guarding or rigidity Neuro: A&O3, CNII-XII grossly intact, 3-5 strength to the right lower extremity , 5 out of 5 strength to the left MSK: Tenderness palpation the right hip, right thigh, with no deformity, range of motion intact in the foot and ankle and the toes. Skin: on limited exam, skin intact with no rashes or lesions - General Limitations: other General appearance: alert Course Course Narrative: 71-year-old male with right leg pain and weakness, he says is been on for several weeks, on exam history of 5 muscle strength the right leg but he is able to wiggle his toes, has good sensation, although he has no urinary retention or incontinence, we will get a CT scan of his L-spine to make sure there is no acute impingement, no MRI indicated because of pacemaker, contraindication. Patient has no chest pain or shortness of breath he did have a mildly elevated troponin but at baseline he has a chronic troponin leak it appears he does have some EKG changes although these are consistent with previous EKG on file. Patient with you. 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 - Lab Data Lab results reviewed: Yes I reviewed the patient's lab results. Result diagrams: 08/29/17 16:44 08/29/17 16:44 Lab Results 08/29/17 08/29/17 Range/Units 16:44 16:44 WBC 5.6 (4.3-11.1) K/mcL RBC 4.54 (4.19-5.50) M/mcL Hgb 13.6 (12.9-16.9) g/dL Hct 40.7 (37.5-50.1) % MCV 89.6 (83.0-100.0) fL MCH 30.0 (28.0-33.3) pg MCHC 33.4 (31.6-35.5) g/dL RDW 13.5 (11.5-14.5) % Plt Count 193 (140-400) K/mcL MPV 10.0 (9.4-12.4) fL Immature Gran % 0.4 (0-4) % Seg Neutrophils % 76.1 % Lymphocytes % 19.8 % Monocytes % 2.5 % Eosinophils % 0.7 % Basophils % 0.5 % Neutrophils # 4.3 (1.6-8.9) K/mcL Lymphocytes # 1.1 (0.6-4.6) K/mcL Monocytes # 0.1 (0.0-1.3) K/mcL Eosinophils # 0.0 (0.0-0.6) K/mcL Basophils # 0.0 (0.0-0.2) K/mcL Sodium 139 (136-145) mEq/L Potassium 3.3 L (3.5-5.1) mEq/L Chloride 102 (98-107) mEq/L Carbon Dioxide 28 (23-29) mEq/L BUN 20 (8-23) mg/dL Creatinine 0.96 (0.70-1.30) mg/dL Est GFR ( Amer) > 60 (> 60) Est GFR (Non-Af Amer) > 60 (> 60) BUN/Creatinine Ratio 21 (6-26) Glucose 109 H (70-105) mg/dL Calculated Osmolality 291 (280-300) Calcium 9.7 (8.6-10.3) mg/dL Troponin I 0.04 H* (< 0.04) ng/mL - Radiology Data Radiology results reviewed: Yes I reviewed the patient's radiology results. Lumbar Spine CT 08/29/17 16:21 IMPRESSION: No acute abnormality detected. Degenerative changes as described above. Note that evaluation of degenerative disease is limited with CT technique. If patient's symptoms persist, consider further evaluation with MRI. D/ / Willian Campos MD / Willian Campos MD Interpreting Provider: iWllian Campos MD Lumbar Spine CT 08/29/17 16:21 IMPRESSION: No acute abnormality detected. Degenerative changes as described above. Note that evaluation of degenerative disease is limited with CT technique. If patient's symptoms persist, consider further evaluation with MRI. D/ / Willian Campos MD / Willian Campos MD Interpreting Provider: Willian Campos MD - EKG Data EKG #1 EKG attestation: Yes I reviewed and interpreted this EKG. EKG shows normal: sinus rhythm Rate: normal Rhythm: NSR ST segment depression in: v5, v6 Interpretation: no acute changes - Core Measures AMI Core Measures Followed: No Measure Exclusions: not indicated Critical Care Time Critical Care Time: Yes Total Critical Care Time: 35 Attestation: Critical care time 35 minutes. Attestation Statement - Attestation Attestation: Patient was seen with resident physician. I reviewed the history, physical, assessment and plan, and agree with the findings. I also personally evaluated this patient and had [id number] time with this patient. 71-year-old male presents emergency Department chief complaint of right hip pain. Patient is somewhat unclear of his medical history but seems like his had bypass surgery recently and he is also been to [facility] diagnosed with some kind of back issue that causing nerve damage he said to his legs. He said he could walk as recently as 3 weeks ago he said but now his pain is so bad in his right hip and his right leg but is unable to walk his also got some flexion contractures said it hurts to straighten his leg out. He denies specific traumatic injury to the back or any other complaints at this time. He denies chest pain or shortness of breath. He was seen at an outside ER and had an elevated troponin [facility] having more elevated troponin he was stented here for an STEMI. Review of systems as above remainder negative. Physical exam vital signs are stable. ENT is unremarkable. Heart and lungs are normal. Abdomen is soft and nontender. Extremities exquisitely tender to the right hip right leg and right knee. There is no gross deformity and no structural deformity. Neurologically alert and oriented decreased strength in the lower extremities secondary to pain. Skin no rashes. ED course EKG shows no acute ischemic changes when compared to prior EKG. Patient does have a pacemaker is unable to get an MRI. Unclear what the CT report from [facility] really demonstrated. He clearly is unable to provide for himself at this point. We will need to admit the patient the hospitalist service for an NSTEMI and right leg and hip pain. Critical care time 35 minutes. Agree with resident and plan.
[2017-08-29 17:07] LABS: Basophils % 0.5 %; Eosinophils % 0.7 %; Hematocrit 40.7 % (37.5-50.1); Hemoglobin 13.6 g/dL (12.9-16.9); Immature Granulocytes % 0.4 % (0-4); Lymphocytes # 1.1 K/mcL (0.6-4.6); Lymphocytes % 19.8 %; Mean Corpuscular HGB Conc 33.4 g/dL (31.6-35.5); Mean Corpuscular Volume 89.6 fL (83.0-100.0); Monocytes # 0.1 K/mcL (0.0-1.3); Monocytes % 2.5 %; Neutrophils # 4.3 K/mcL (1.6-8.9); Platelet Count 193 K/mcL (140-400); Red Blood Count 4.54 M/mcL (4.19-5.50); Red Cell Distribution Width 13.5 % (11.5-14.5); Segmented Neutrophils % 76.1 %
[2017-08-29 17:28] LABS: BUN/Creatinine Ratio 21 (6-26); Blood Urea Nitrogen 20 mg/dL (8-23); Calcium 9.7 mg/dL (8.6-10.3); Carbon Dioxide 28 mEq/L (23-29); Chloride 102 mEq/L (98-107); Glucose 109 mg/dL (70-105); Osmolality,Calculated 291 (280-300); Potassium 3.3 mEq/L (3.5-5.1); Sodium 139 mEq/L (136-145); eGFR For African Americans > 60 (> 60); eGFR For Non-African Americans > 60 (> 60)
[2017-08-29 17:44] LABS: Troponin I 0.04 ng/mL (< 0.04)
[2017-08-29] MEDS ORDERED: Naloxone 0.4 MG/ML INJ IVP PRN (21:04)
[2017-08-29] MEDS ORDERED: Acetaminophen 325 MG TABLET PO PRN (21:04)
[2017-08-29] MEDS ORDERED: *HR* LORazepam 2 MG/ML VIAL IVP PRN ×3 (21:12)
--- NOTE | 2017-08-29 21:17 | Internal Med History&Physical ---
Date of Encounter: 08/29/17 Time of Encounter: 19:00 Internal Medicine - H&P: HPI Chief complaint: Right leg pain Admitted From: Home Plans for Post Hospital Care: Home History of present illness: Mr. Manning is a 71 year old male presented to ER (transferred from [place]) for left leg pain. Past medical history is significant for CHF with EF 35% on pacemaker, CKD, history of CVA with left-sided residual weakness, CAD S/P CABG, tongue cancer S/P chemotherapy and radiation therapy. Patient has chronic back pain. He started to have right leg pain since 1 months ago, pain is sharp, started from right low back down to right leg. Patient denies urinary or fecal incontinence. In the [facility], hip x-ray has been done, negative for fracture or dislocation. Patient was found elevated troponin as well (0.288 in [place] today). However, patient denies chest pain, shortness of breath, nausea, or vomiting. Patient was transferred to our hospital for further management. The patient cannot walk because of the pain, he was admitted for further management. Past Med Surg Social Fam HX - Past Medical History Medical history: cancer, cardiomyopathy, coronary artery disease, CVA, hyperlipidemia, hypertension, myocardial infarction, other Additional medical history: throat cancer Psychiatric history: no psych history - Past Surgical History Surgical History: coronary bypass (CABG), pacemaker/AICD Additional surgical history: PACER/DEFIB - Social History Smoking Status: Former smoker Smokeless Tobacco Status: No Alcohol use: occasionally, recent Drug use: none - Family History Father Living Status: Hx Family Neurologic Disorders: Yes (cerebral hemorrhage) Mother History Unknown: Yes Living Status: Internal Medicine - H&P: Meds Carvedilol [Coreg] 6.25 mg PO BID 12/24/14 [History] Furosemide [Lasix] 40 mg PO DAILY 12/24/14 [History] Magnesium Oxide [Magnesium] 400 mg PO DAILY 12/24/14 [History] Potassium Chloride 10 meq PO DAILY 12/24/14 [History] Terazosin [Hytrin] 2 mg PO HS 12/24/14 [History] Aspirin 81 mg PO DAILY tab.chew 12/25/14 [Rx] Ondansetron HCl 8 mg PO Q8H PRN #60 tablet 01/15/16 [Rx] FentaNYL PATCH [Duragesic] 12 mcg TD Q72H #10 patch.td72 02/20/16 [Rx] Lidocaine Viscous Oral Soln 15 ml MM QID PRN #100 ml 03/19/16 [Rx] Oxycodone HCl/Acetaminophen [Percocet 5-325 mg Tablet] 1 tab PO Q6H PRN [History] Polyethylene Glycol 3350 [MiraLAX Powder Bulk 17.9 Oz] 17 gm PO DAILY 05/03/16 [ History] Simvastatin [Zocor] 40 mg PO DAILY 05/03/16 [History] amLODIPine [Norvasc] 10 mg PO DAILY 05/03/16 [History] Magic Mouthwash 10 ml PO TID #240 ml 05/06/16 [Rx] Nystatin [Nystatin Suspension] 100,000 units PO QID #120 ml 05/06/16 [Rx] 3 Allergy/AdvReac Type Severity Reaction Status Date / Time No Known Allergies Allergy Verified 08/29/17 08:42 All Systems PM: A 10-system review of systems was performed and is negative for pertinent findings except as documented above in the HPI. - Constitutional Vitals: Temp Pulse Resp BP Pulse Ox 98.0 F 63 16 188/75 99 08/29/17 20:45 08/29/17 20:45 08/29/17 20:45 08/29/17 20:45 08/29/17 20:45 General appearance: Present: A&O X 3, no acute distress, answers questions appropriately - Head Head exam: Present: atraumatic, normocephalic - Eye Eye exam: Present: PERRL, conjuntiva pink, sclera anicteric Pupils: Present: PERRL - Neck Neck exam general surgery: Present: supple, trachea midline. Absent: lymphadenopathy - Respiratory Respiratory exam: Present: CTAB. Absent: accessory muscle use, rales, rhonchi, wheezes - Cardiovascular Cardiovascular exam: Present: RRR, +S1, +S2. Absent: diastolic murmur, gallop, rubs, systolic murmur - GI/Abdominal GI/Abdominal exam: Present: normal bowel sounds, soft, no peritoneal signs. Absent: distended, tenderness - Extremities Exam Extremities exam: Present: warm, radial pulses palpable and symmetrical. Absent : calf tenderness, cyanotic, pedal edema Additional comments: Right leg pain on movement. - Neurological Exam Neurological exam: Present: CN II-XII intact, oriented X3, no focal deficits. Absent: pronater drift, facial droop, speech deficit - Skin Skin exam: Present: dry, intact Internal Med - H&P Results - Labs CBC & Chem 7: 08/29/17 16:44 08/29/17 16:44 - Assessment and plan (1) Right leg pain Current Visit: Yes Status: Acute Assessment and plan: Patient has chronic back pain. Increased right leg pain. CT L-spine shows degenerative changes, otherwise unremarkable. Patient cannot have MRI because of pacemaker. - Continue pain control with pain medication. - PTOT evaluation - Consider pain management consult if pain is persistent. (2) Elevated troponin I level Current Visit: Yes Status: Acute Assessment and plan: Patient denies chest pain. Has history of CAD S/P CABG. EKG unremarkable. - Continue cardiac monitoring - Track 3 sets of troponin (3) CAD (coronary artery disease) Current Visit: Yes Status: Chronic Assessment and plan: Continue home medications after verification Qualifiers: Coronary Disease-Associated Artery/Lesion type: unspecified vessel or lesion type [place] vs. transplanted heart: [place] heart Associated angina: with unspecified angina Qualified Code(s): I25.119 - Atherosclerotic heart disease of [place] coronary artery with unspecified angina pectoris (4) CVA (cerebral vascular accident) Current Visit: No Status: Acute Assessment and plan: History of CVA with left-sided weakness. Continue antiplatelet and statin after home medication verification Qualifiers: CVA mechanism: unspecified Qualified Code(s): I63.9 - Cerebral infarction, unspecified (5) DVT prophylaxis Current Visit: No Status: Acute Assessment and plan: Heparin subcutaneously (6) Hypertension Current Visit: No Status: Acute Assessment and plan: Continue home medications. Qualifiers: Hypertension type: essential hypertension Qualified Code(s): I10 - Essential (primary) hypertension (7) Hypokalemia Current Visit: No Status: Acute Assessment and plan: Give by mouth supplement. Follow-up potassium level (8) Squamous cell carcinoma of head and neck Current Visit: No Status: Acute Assessment and plan: Continue follow-up with oncology as outpatient (9) AA (alcohol abuse) Current Visit: No Status: Chronic Assessment and plan: Patient to drink 2-3 [address] every [address] Will place him on CIWA protocol. - Time Spent With Patient Total time spent is greater than 50% in coordination of care (as documented) at patient's floor/unit and/or counseling patient: 40 minutes Greater than 35 minutes
[2017-08-29] MEDS: *HR* OxyCODONE Immed Rel 5 MG TABLET PO PRN (21:38)
[2017-08-30] MEDS: *HR* HYDROcodone/Acet 5/325 mg TABLET PO PRN ×3 (02:47→18:18)
[2017-08-30] MEDS: *HR* Heparin 5,000 UNIT/ML VIAL SQ SCH ×2 (05:23→17:13)
[2017-08-30] MEDS: *HR* OxyCODONE Immed Rel 5 MG TABLET PO PRN ×2 (06:02→14:47)
[2017-08-30 06:03] LABS: Hematocrit 38.5 % (37.5-50.1); Hemoglobin 12.9 g/dL (12.9-16.9); Immature Granulocytes % 0.4 % (0-4); Lymphocytes % 22.6 %; Mean Corpuscular HGB Conc 33.5 g/dL (31.6-35.5); Mean Corpuscular Hemoglobin 30.1 pg (28.0-33.3); Mean Platelet Volume 10.3 fL (9.4-12.4); Monocytes % 1.2 %; Platelet Count 195 K/mcL (140-400); Red Blood Count 4.28 M/mcL (4.19-5.50); Red Cell Distribution Width 13.4 % (11.5-14.5); Segmented Neutrophils % 75.8 %
[2017-08-30 06:04] LABS: Lymphocytes # 1.1 K/mcL (0.6-4.6); Monocytes # 0.1 K/mcL (0.0-1.3); Neutrophils # 3.8 K/mcL (1.6-8.9)
[2017-08-30 06:23] LABS: BUN/Creatinine Ratio 26 (6-26); Blood Urea Nitrogen 27 mg/dL (8-23); Calcium 9.5 mg/dL (8.6-10.3); Carbon Dioxide 26 mEq/L (23-29); Chloride 105 mEq/L (98-107); Glucose 128 mg/dL (70-105); Magnesium 2.3 mg/dL (1.6-2.6); Osmolality,Calculated 297 (280-300); Potassium 3.9 mEq/L (3.5-5.1); Sodium 140 mEq/L (136-145); eGFR For African Americans > 60 (> 60); eGFR For Non-African Americans > 60 (> 60)
[2017-08-30 06:26] LABS: Troponin I 0.04 ng/mL (< 0.04)
[2017-08-30] MEDS: amLODIPine 5 MG TABLET PO SCH (08:02)
[2017-08-30] MEDS: Thiamine (B-1) 100 MG TABLET PO SCH (08:02)
[2017-08-30] MEDS: Folic Acid 1 MG TABLET PO SCH (08:02)
[2017-08-30] MEDS: Aspirin 81 MG TAB.CHEW PO SCH (08:02)
[2017-08-30] MEDS: Furosemide 40 MG TABLET PO SCH (08:03)
--- NOTE | 2017-08-30 10:42 | Internal Med Progress Note ---
Date of Encounter: 08/30/17 Time of Encounter: 10:42 - Assessment and plan (1) Right leg pain Current Visit: Yes Status: Acute Assessment and plan: Patient has chronic back pain. Increased right leg pain. CT L-spine shows degenerative changes, otherwise unremarkable. Patient cannot have MRI because of pacemaker. [facility] he has a history of chronic right hip pain and right sciatica he also has chronic left leg hemiparesis right hip x-ray shows no acute fracture or dislocation or significant bony abnormalities no significant arthropathy right sacroiliac joint normal x-ray of lumbosacral spine shows gross alignment of the spine is within normal limits the height of the vertebral bodies are normal no destructive osseous lesions are seen. The pedicles and transverse process intact the visualized portions of the sacroiliac joints are unremarkable mild degenerative disc/[place] changes are present throughout the lumbar spine and have not progressed impression chronic mild multilevel lumbar spondyllosis per radiology read - Continue pain control with pain medication. - PTOT evaluation - Consider pain management consult if pain is persistent. We will obtain records from [facility]-patient states he has had a recent workup (2) AA (alcohol abuse) Current Visit: No Status: Chronic Assessment and plan: Patient to drink 2-3 beers every day. Patient states his last drink was [address] him on CIWA protocol. (3) Hypertension Current Visit: No Status: Acute Assessment and plan: Presently controlled Continue home medications. Qualifiers: Hypertension type: essential hypertension Qualified Code(s): I10 - Essential (primary) hypertension (4) DVT prophylaxis Current Visit: No Status: Acute Assessment and plan: Heparin subcutaneously (5) Squamous cell carcinoma of head and neck Current Visit: No Status: Acute Assessment and plan: Continue follow-up with oncology as outpatient (6) Hypokalemia Current Visit: No Status: Acute Assessment and plan: This is improved we will continue to monitor and replace as needed (7) CVA (cerebral vascular accident) Current Visit: No Status: Acute Assessment and plan: History of CVA with left-sided weakness. Continue antiplatelet and statin will resume once home medication verified Qualifiers: CVA mechanism: unspecified Qualified Code(s): I63.9 - Cerebral infarction, unspecified (8) CAD (coronary artery disease) Current Visit: Yes Status: Chronic Assessment and plan: Continue home medications after verification No chest pain at this time Nitroglycerin as needed for chest pain Qualifiers: Coronary Disease-Associated Artery/Lesion type: unspecified vessel or lesion type [place] vs. transplanted heart: [place] heart Associated angina: with unspecified angina Qualified Code(s): I25.119 - Atherosclerotic heart disease of [place] coronary artery with unspecified angina pectoris (9) Elevated troponin I level Current Visit: Yes Status: Acute Assessment and plan: Patient denies chest pain. Has history of CAD S/P CABG. EKG unremarkable. - Continue cardiac monitoring - Troponins adynamic. Upon review it appears that his troponins have been chronically elevated - Time Spent With Patient Total time spent is greater than 50% in coordination of care (as documented) at patient's floor/unit and/or counseling patient: - Subjective Interval history: Patient was seen and examined at bedside. He sitting up in the bed he is able to bend forward and raise his left leg however he is unable to raise his right leg or strained his right leg. States it is too painful. He describes the pain as sharp originating in his lower back radiating down to his right foot He does have sensation in his able to wiggle his toes. Denies any urinary incontinence or bowel incontinence. He says he has had a workup at [facility] and received steroid injections. [facility] from both facilities. I did review the treatment plan with the patient who verbalized understanding - Constitutional Vitals: Temp Pulse Resp BP Pulse Ox 98.3 F 66 17 152/71 98 08/30/17 07:37 08/30/17 07:37 08/30/17 07:37 08/30/17 07:37 08/30/17 07:37 General appearance: Present: A&O X 3, no acute distress, answers questions appropriately - Head Head exam: Present: atraumatic, normocephalic - Eye Eye exam: Present: PERRL, conjuntiva pink, sclera anicteric Pupils: Present: PERRL - Neck Neck exam general surgery: Present: supple, trachea midline. Absent: lymphadenopathy - Respiratory Respiratory exam: Present: CTAB. Absent: accessory muscle use, rales, rhonchi, wheezes - Cardiovascular Cardiovascular exam: Present: RRR, +S1, +S2. Absent: diastolic murmur, gallop, rubs, systolic murmur - GI/Abdominal GI/Abdominal exam: Present: normal bowel sounds, soft, no peritoneal signs. Absent: distended, tenderness - Extremities Exam Extremities exam: Present: warm, radial pulses palpable and symmetrical. Absent : calf tenderness, cyanotic, pedal edema - Neurological Exam Neurological exam: Present: CN II-XII intact, oriented X3, no focal deficits. Absent: pronater drift, facial droop, speech deficit Additional comments: Patient's right leg is bent he is unable to straighten his leg or lifted. He does have sensation and is able to wiggle his toes. Internal Medicine: Result - Labs CBC & Chem 7: 08/30/17 05:06 08/30/17 05:06 Labs: Short CBC 08/30/17 Range/Units 05:06 WBC 5.0 (4.3-11.1) K/mcL Hgb 12.9 (12.9-16.9) g/dL Hct 38.5 (37.5-50.1) % Plt Count 195 (140-400) K/mcL Neutrophils # 3.8 (1.6-8.9) K/mcL BMP 08/30/17 05:06 Sodium 140 Potassium 3.9 Chloride 105 Carbon Dioxide 26 BUN 27 H Creatinine 1.03 Glucose 128 H Calcium 9.5 Cardiac Enzymes 08/29/17 08/30/17 Range/Units 22:54 05:06 Troponin I 0.03 0.04 H* (< 0.04) ng/mL Consult Discharge Plan - Plan Referrals: NONE,PCP [Primary Care Provider] -
[2017-08-31] MEDS: *HR* OxyCODONE Immed Rel 5 MG TABLET PO PRN ×3 (00:12→16:33)
[2017-08-31] MEDS: *HR* HYDROcodone/Acet 5/325 mg TABLET PO PRN ×3 (03:32→20:50)
[2017-08-31] MEDS: *HR* Heparin 5,000 UNIT/ML VIAL SQ SCH ×2 (05:04→16:34)
[2017-08-31 05:31] LABS: Basophils % 0.5 %; Hematocrit 35.7 % (37.5-50.1); Hemoglobin 11.8 g/dL (12.9-16.9); Immature Granulocytes % 0.2 % (0-4); Lymphocytes # 1.8 K/mcL (0.6-4.6); Lymphocytes % 29.1 %; Mean Corpuscular HGB Conc 33.1 g/dL (31.6-35.5); Mean Corpuscular Hemoglobin 30.1 pg (28.0-33.3); Mean Corpuscular Volume 91.1 fL (83.0-100.0); Mean Platelet Volume 10.1 fL (9.4-12.4); Monocytes # 0.5 K/mcL (0.0-1.3); Monocytes % 8.2 %; Neutrophils # 3.9 K/mcL (1.6-8.9); Platelet Count 173 K/mcL (140-400); Red Blood Count 3.92 M/mcL (4.19-5.50); Red Cell Distribution Width 13.6 % (11.5-14.5)
[2017-08-31 05:49] LABS: BUN/Creatinine Ratio 35 (6-26); Blood Urea Nitrogen 37 mg/dL (8-23); Calcium 9.3 mg/dL (8.6-10.3); Carbon Dioxide 28 mEq/L (23-29); Chloride 106 mEq/L (98-107); Glucose 99 mg/dL (70-105); Osmolality,Calculated 299 (280-300); Potassium 3.6 mEq/L (3.5-5.1); Sodium 140 mEq/L (136-145); eGFR For African Americans > 60 (> 60); eGFR For Non-African Americans > 60 (> 60)
[2017-08-31] MEDS: Folic Acid 1 MG TABLET PO SCH (07:41)
[2017-08-31] MEDS: amLODIPine 5 MG TABLET PO SCH (07:41)
[2017-08-31] MEDS: Furosemide 40 MG TABLET PO SCH (07:41)
[2017-08-31] MEDS: Aspirin 81 MG TAB.CHEW PO SCH (07:41)
[2017-08-31] MEDS: Thiamine (B-1) 100 MG TABLET PO SCH (07:41)
--- NOTE | 2017-08-31 15:27 | Electrocardiograph Report ---
[address] [place], [place] [address] Test Date: 2017-08-29 Pat Name: Cedrick Manning Department: 103 Room: 3B63 Gender: M Licensed Audiologist: TMR : 1945 Requested By: Elier Ye Order Number: [id number] Reading MD: Jesus Sadler Measurements Intervals [place] Rate: 60 P: 39 [place]: 203 QRS: 39 QRSD: 88 T: 127 QT: 449 QTc: 449 Interpretive Statements SINUS RHYTHM WITH OCCASIONAL VENTRICULAR PREMATURE COMPLEXES WITH OCCASIONAL SUPRAVENTRICULAR PREMATURE COMPLEXES ANTEROSEPTAL MYOCARDIAL INFARCTION, OF INDETERMINATE AGE Electronically Signed On 08-31-2017 15:26:04 EDT by Jesus Sadler
--- NOTE | 2017-08-31 20:13 | Internal Med Progress Note ---
Date of Encounter: 08/31/17 Time of Encounter: 20:10 - Assessment and plan (1) Right leg pain Current Visit: Yes Status: Acute Assessment and plan: Patient has chronic back pain. Increased right leg pain. CT L-spine shows degenerative changes, otherwise unremarkable. Patient cannot have MRI because of pacemaker. [facility] that he has a history of chronic right hip pain and right sciatica he also has chronic left leg hemiparesis right hip x-ray shows no acute fracture or dislocation or significant bony abnormalities no significant arthropathy right sacroiliac joint normal x-ray of lumbosacral spine shows gross alignment of the spine is within normal limits the height of the vertebral bodies are normal no destructive osseous lesions are seen. The pedicles and transverse process intact the visualized portions of the sacroiliac joints are unremarkable mild degenerative disc/[place] changes are present throughout the lumbar spine and have not progressed impression chronic mild multilevel lumbar spondyllosis per radiology read - Continue pain control with pain medication. - PTOT evaluation - Pain controlled at this time -Consider pain management consult if pain is persistent. Patient is to be placed in ECF awaiting acceptance (2) AA (alcohol abuse) Current Visit: No Status: Chronic Assessment and plan: Patient to drink 2-3 beers every day. Patient states his last drink was [address] him on CIWA protocol. (3) Hypertension Current Visit: No Status: Acute Assessment and plan: Presently controlled Continue home medications. Qualifiers: Hypertension type: essential hypertension Qualified Code(s): I10 - Essential (primary) hypertension (4) DVT prophylaxis Current Visit: No Status: Acute Assessment and plan: Heparin subcutaneously (5) Squamous cell carcinoma of head and neck Current Visit: No Status: Acute Assessment and plan: Continue follow-up with oncology as outpatient (6) Hypokalemia Current Visit: No Status: Acute Assessment and plan: This is improved we will continue to monitor and replace as needed (7) CVA (cerebral vascular accident) Current Visit: No Status: Acute Assessment and plan: History of CVA with left-sided weakness. Continue antiplatelet and statin Qualifiers: CVA mechanism: unspecified Qualified Code(s): I63.9 - Cerebral infarction, unspecified (8) CAD (coronary artery disease) Current Visit: Yes Status: Chronic Assessment and plan: Continue home medications No chest pain at this time Nitroglycerin as needed for chest pain Qualifiers: Coronary Disease-Associated Artery/Lesion type: unspecified vessel or lesion type [place] vs. transplanted heart: [place] heart Associated angina: with unspecified angina Qualified Code(s): I25.119 - Atherosclerotic heart disease of [place] coronary artery with unspecified angina pectoris (9) Elevated troponin I level Current Visit: Yes Status: Acute Assessment and plan: Patient denies chest pain. Has history of CAD S/P CABG. EKG unremarkable. - Continue cardiac monitoring - Troponins adynamic. Upon review it appears that his troponins have been chronically elevated - Time Spent With Patient Total time spent is greater than 50% in coordination of care (as documented) at patient's floor/unit and/or counseling patient: - Subjective Interval history: Patient was seen and examined at bedside. Presently he denies any pain or discomfort. He states he is able to straighten his leg out at this time. He has been working with physical therapy and tolerating therapy sessions. We are waiting for ECF placement. I reviewed treatment plan with patient who verbalized understanding - Constitutional Vitals: Temp Pulse Resp BP Pulse Ox 98.5 F 61 16 139/74 95 08/31/17 18:55 08/31/17 18:55 08/31/17 18:55 08/31/17 18:55 08/31/17 18:55 General appearance: Present: A&O X 3, no acute distress, answers questions appropriately - Head Head exam: Present: atraumatic, normocephalic - Eye Eye exam: Present: PERRL, conjuntiva pink, sclera anicteric Pupils: Present: PERRL - Neck Neck exam general surgery: Present: supple, trachea midline. Absent: lymphadenopathy - Respiratory Respiratory exam: Present: CTAB. Absent: accessory muscle use, rales, rhonchi, wheezes - Cardiovascular Cardiovascular exam: Present: RRR, +S1, +S2. Absent: diastolic murmur, gallop, rubs, systolic murmur - GI/Abdominal GI/Abdominal exam: Present: normal bowel sounds, soft, no peritoneal signs. Absent: distended, tenderness - Extremities Exam Extremities exam: Present: warm, radial pulses palpable and symmetrical. Absent : calf tenderness, cyanotic, pedal edema Additional comments: Right leg weakness - Neurological Exam Neurological exam: Present: CN II-XII intact, oriented X3, no focal deficits. Absent: pronater drift, facial droop, speech deficit Additional comments: Right leg weakness - Skin Skin exam: Present: dry, intact Internal Medicine: Result - Labs CBC & Chem 7: 08/31/17 05:14 08/31/17 05:14 Labs: Short CBC 08/31/17 Range/Units 05:14 WBC 6.2 (4.3-11.1) K/mcL Hgb 11.8 L (12.9-16.9) g/dL Hct 35.7 L (37.5-50.1) % Plt Count 173 (140-400) K/mcL Neutrophils # 3.9 (1.6-8.9) K/mcL BMP 08/31/17 05:14 Sodium 140 Potassium 3.6 Chloride 106 Carbon Dioxide 28 BUN 37 H Creatinine 1.05 Glucose 99 Calcium 9.3 Consult Discharge Plan - Plan Referrals: NONE,PCP [Primary Care Provider] -
[2017-08-31] MEDS: Gabapentin 100 MG CAPSULE PO SCH (20:50)
[2017-09-01] MEDS: *HR* OxyCODONE Immed Rel 5 MG TABLET PO PRN ×2 (00:16→09:31)
[2017-09-01] MEDS: *HR* Heparin 5,000 UNIT/ML VIAL SQ SCH (05:20)
[2017-09-01] MEDS: *HR* HYDROcodone/Acet 5/325 mg TABLET PO PRN ×2 (05:26→11:51)
[2017-09-01] MEDS: Folic Acid 1 MG TABLET PO SCH (09:26)
[2017-09-01] MEDS: Gabapentin 100 MG CAPSULE PO SCH (09:26)
[2017-09-01] MEDS: amLODIPine 5 MG TABLET PO SCH (09:26)
[2017-09-01] MEDS: Furosemide 40 MG TABLET PO SCH (09:26)
[2017-09-01] MEDS: Thiamine (B-1) 100 MG TABLET PO SCH (09:26)
[2017-09-01] MEDS: Aspirin 81 MG TAB.CHEW PO SCH (09:26)
[2017-09-01 11:15] VITALS: BP 147/66
--- NOTE | 2017-09-01 14:32 | Event Note ---
Date of Encounter: 09/01/17 Time of Encounter: 14:26 - Cardiology Event Note [employer] device check for concerns of bradycardia. Device check with normal functioning ICD. Last non-sustained VT 04/11/17 per device. However, per review of telemetry, non-sustained VT noted yesterday, 30 beats. It appears BB has been stopped due to concerns of bradycardia. Recommend resuming BB, can consider lower dose. Average HR per device 54, appears to be set a minimum rate of 50BPM. K 08/31/17 within normal limits. Mg 08/30/17 within normal limits. Can consider consult to cardiology if needed. Thank you.
--- NOTE | 2017-09-01 14:51 | Discharge Summary ---
- NOTES TO OUTPATIENT PROVIDER Notes to Outpatient Provider: Recommend follow-up with PCP within one week after discharge from acute inpatient rehabilitation Date of Encounter: 09/01/17 Time of Encounter: 14:48 - Discharge Diagnosis (1) Right leg pain Priority: Primary Status: Acute Assessment and Plan: hx chronic back pain now with increased right leg pain. CT L-spine shows degenerative changes, otherwise unremarkable. Patient cannot have MRI because of pacemaker. Per [facility] records it appears that he has a history of chronic right hip pain and right sciatica. Right hip x-ray from [facility] negative for fracture or dislocation. L-spine CT showed degenerative changes, otherwise nonacute. Symptoms improved at time of discharge. PT/OT recommending acute inpatient rehabilitation. (2) Bradycardia Priority: Primary Status: Acute Assessment and Plan: Has [employer] ICD/PPM. RN reported bradycardia overnight with heart rates down to the 40s. 09/01/17 device check with normal functioning ICD. Last non-sustained VT 04/11/17 per device. Telemetry, non-sustained VT noted on , 30 beats. Average HR per device 54, appears to be set a minimum rate of 50BPM. Cont home BB. Vital signs can be monitored at acute inpatient rehabilitation (3) Elevated troponin I level Priority: Primary Status: Acute Assessment and Plan: Troponin peaked at 0.04. Asymptomatic, denied chest pain. Per [facility] review patient has chronically elevated troponin. No acute EKG changes. Recommend follow-up with primary outpatient [facility]. (4) AA (alcohol abuse) Priority: Primary Status: Chronic Assessment and Plan: patient reported drinking 2-3 daily. Did not trigger CIWA (5) Hypertension Priority: Primary Status: Acute Assessment and Plan: per hx. BP controlled. Cont home BP medications Qualifiers: Hypertension type: essential hypertension Qualified Code(s): I10 - Essential (primary) hypertension (6) Squamous cell carcinoma of head and neck Priority: Primary Status: Acute Assessment and Plan: Continue follow-up with oncology as outpatient (7) Hypokalemia Priority: Primary Status: Acute Assessment and Plan: resolved. CMP every be monitored at acute inpatient rehabilitation (8) CVA (cerebral vascular accident) Priority: Primary Status: Acute Assessment and Plan: hx CVA with left-sided weakness. Continue ASA, statin, BB Qualifiers: CVA mechanism: unspecified Qualified Code(s): I63.9 - Cerebral infarction, unspecified (9) CAD (coronary artery disease) Priority: Primary Status: Chronic Assessment and Plan: hx CAD. Asymptomatic; denied CP. Cont ASA, BB, statin Qualifiers: Coronary Disease-Associated Artery/Lesion type: unspecified vessel or lesion type [place] vs. transplanted heart: [place] heart Associated angina: with unspecified angina Qualified Code(s): I25.119 - Atherosclerotic heart disease of [place] coronary artery with unspecified angina pectoris Hospital course: Please see assessment and plan for Hospital course Discharge discussed with: patient (Seen and examined at bedside. Patient is new to me, information obtained from chart review and patient report. Still with complaint of right leg pain however overall improved. Says he is ready for discharge today. Denies chest pain, no shortness of breath.) - Time Spent with Patient Total time spent providing and/or coordinating discharge services: - Discharge Medications Home Medications: Magnesium Oxide [Magnesium] 400 mg PO DAILY 12/24/14 [History] Terazosin [Hytrin] 2 mg PO HS 12/24/14 [History] Aspirin 81 mg PO DAILY tab.chew 12/25/14 [Rx] amLODIPine [Norvasc] 10 mg PO DAILY 05/03/16 [History] Acetaminophen [Non-Aspirin] 650 mg PO Q4H PRN 08/31/17 [History] Aspirin [Lo-Dose Aspirin EC] 81 mg PO DAILY 08/31/17 [History] Atorvastatin [Lipitor] 40 mg PO HS 08/31/17 [History] Carvedilol [Coreg] 6.25 mg PO BID 08/31/17 [History] Furosemide [Lasix] 40 mg PO DAILY 08/31/17 [History] Gabapentin [Neurontin] 100 mg PO TID 08/31/17 [History] Levothyroxine [Synthroid] 50 mcg PO DAILY 08/31/17 [History] Lidocaine Patch [Lidoderm 5% patch] 1 each TP DAILY 08/31/17 [History] Memantine [Namenda] 5 mg PO DAILY 08/31/17 [History] Multivit-Min/FA/Lycopen/Lutein [A Thru Z Select Multivit Tab] 1 tab PO DAILY 02/07 [History] Potassium Chloride [Klor-Con 10] 10 meq PO BID 08/31/17 [History] Sennosides/Docusate Sodium [Colace 2-in-1 Tablet] 2 each PO HS 08/31/17 [History ] Allergies/Adverse Reactions: 3 Allergy/AdvReac Type Severity Reaction Status Date / Time No Known Allergies Allergy Verified 08/29/17 08:42 Date of admission: 08/29/17 21:23 Primary care physician: PCP NONE Consults: 08/31/17 09:41 Consult to Nurse Navigator [CONS] Routine Comment: CHF Discharging clinician: Julianna Martinez Anticipated date of discharge: 09/01/17 - Constitutional Vitals: Temp Pulse Resp BP Pulse Ox 97.8 F 58 17 147/66 97 09/01/17 11:11 09/01/17 11:11 09/01/17 11:11 09/01/17 11:11 09/01/17 11:11 General appearance: Present: A&O X 3, no acute distress, answers questions appropriately - Head Head exam: Present: atraumatic, normocephalic - Eye Eye exam: Present: PERRL, conjuntiva pink, sclera anicteric Pupils: Present: PERRL - Neck Neck exam general surgery: Present: supple, trachea midline. Absent: lymphadenopathy - Respiratory Respiratory exam: Present: CTAB. Absent: accessory muscle use, rales, rhonchi, wheezes - Cardiovascular Cardiovascular exam: Present: bradycardia, +S1, +S2. Absent: diastolic murmur, gallop, rubs, systolic murmur Additional comments: ICD/PPM to left chest - GI/Abdominal GI/Abdominal exam: Present: normal bowel sounds, soft, no peritoneal signs. Absent: distended, tenderness - Extremities Exam Extremities exam: Present: warm, radial pulses palpable and symmetrical. Absent : calf tenderness, cyanotic, pedal edema - Neurological Exam Neurological exam: Present: CN II-XII intact, oriented X3, no focal deficits. Absent: pronater drift, facial droop, speech deficit - Skin Skin exam: Present: dry, intact - Patient Status Disposition: Transfer SNF Condition: Good Functional capacity at discharge: independent ambulation Overall status at discharge: patient is back to baseline - Discharge Instructions Follow Up With: NONE,PCP [Primary Care Provider] - (Please follow-up with your primary care physician and primary outpatient [facility] within 1-2 weeks after discharge from [facility]) - Diet and Activity Activity: as per physical therapy Diet: low fat, low cholesterol
--- NOTE | 2017-09-01 15:15 | Physician Discharge Referral ---
ExtendedCare Referral Info Transfer To: [facility] Provider in Charge: Julianna Gonzalez CNP Provider in Charge after Transfer: PCP Institutional Level of Care: Skilled - Diagnosis (1) Right leg pain Status: Acute (2) Bradycardia Status: Acute (3) Elevated troponin I level Status: Acute (4) AA (alcohol abuse) Status: Chronic (5) Hypertension Status: Acute (6) Squamous cell carcinoma of head and neck Status: Acute (7) Hypokalemia Status: Acute (8) CVA (cerebral vascular accident) Status: Acute (9) CAD (coronary artery disease) Status: Chronic - Transfer Medications Home Medications: Magnesium Oxide [Magnesium] 400 mg PO DAILY 12/24/14 [History] Terazosin [Hytrin] 2 mg PO HS 12/24/14 [History] Aspirin 81 mg PO DAILY tab.chew 12/25/14 [Rx] amLODIPine [Norvasc] 10 mg PO DAILY 05/03/16 [History] Acetaminophen [Non-Aspirin] 650 mg PO Q4H PRN 08/31/17 [History] Aspirin [Lo-Dose Aspirin EC] 81 mg PO DAILY 08/31/17 [History] Atorvastatin [Lipitor] 40 mg PO HS 08/31/17 [History] Carvedilol [Coreg] 6.25 mg PO BID 08/31/17 [History] Furosemide [Lasix] 40 mg PO DAILY 08/31/17 [History] Gabapentin [Neurontin] 100 mg PO TID 08/31/17 [History] Levothyroxine [Synthroid] 50 mcg PO DAILY 08/31/17 [History] Lidocaine Patch [Lidoderm 5% patch] 1 each TP DAILY 08/31/17 [History] Memantine [Namenda] 5 mg PO DAILY 08/31/17 [History] Multivit-Min/FA/Lycopen/Lutein [A Thru Z Select Multivit Tab] 1 tab PO DAILY 02/07 [History] Potassium Chloride [Klor-Con 10] 10 meq PO BID 08/31/17 [History] Sennosides/Docusate Sodium [Colace 2-in-1 Tablet] 2 each PO HS 08/31/17 [History ] Allergies/Adverse Reactions: 3 Allergy/AdvReac Type Severity Reaction Status Date / Time No Known Allergies Allergy Verified 08/29/17 08:42 - Respiratory Orders Smoking Cessation: Smoking cessation has been advised. For more information, call the [place] Tobacco Quit Line at 2-889-BLQB-NOW. - Advance Directives Code Status: Full Code - Mobility Orders Ambulate - Rehabiliation Orders Rehab Potential: Good Rehab Orders: Evaluation for Physical Therapy, Evaluation for Occupational Therapy - Diet Orders No Added Salt (KAR), Cardiac CERTIFICATION: I certify that the transfer of the above named patient to an Extended Care Facility is necessary for the continuing treatment of the diagnosis listed. The above information is true and accurate reflection of patient's current condition. Confidential - Redisclosure prohibited without a patient's written consent.
== END 2017-09-01 16:20 | DRG 556 ==
LOC: EMEROO 16:09 → 3BNU 16:09
PROVIDERS: ADMIT Internal Medicine; ATTEND Internal Medicine

== ENCOUNTER 2019-07-03 15:18 | Inpatient (IN) ==
[~2019-07-03 15:18] MED LIST: Aminoglycoside Consult 1 EACH MC ONE
[2019-07-03] MEDS ORDERED: 0.9 % Sodium Chloride 1,000 ML IVC ONE (15:37)
[2019-07-03] MEDS ORDERED: Piperacillin/Tazobactam 3.375 GM in 0.9 % Sodium Chloride Mini Bag 100 ML IVPB ONE (15:39)
[2019-07-03] MEDS ORDERED: *HR* Heparin 5,000 UNIT/ML VIAL IVP ONE (16:16)
[2019-07-03] MEDS ORDERED: *HR* Heparin 5,000 UNIT/ML VIAL IVP PRN ×2 (16:16)
[2019-07-03] MEDS ORDERED: Mag Hydrox/Al Hydrox/Simeth 30 ML UDC PO PRN (16:26)
[2019-07-03] MEDS ORDERED: MOM Conc 10 ML UD.LIQ PO PRN (16:26)
[2019-07-03] MEDS ORDERED: Ondansetron ODT 4 MG TAB.RAPDIS SL PRN (16:26)
[2019-07-03] MEDS ORDERED: Naloxone 0.4 MG/ML INJ IVP PRN (16:26)
[2019-07-03] MEDS ORDERED: Acetaminophen 325 MG TABLET PO PRN (16:26)
[2019-07-03] MEDS ORDERED: *HR* HYDROcodone/Acet 5/325 mg TABLET PO PRN (16:26)
[2019-07-03 16:30] LABS: Hematocrit 36.4 % (37.5-50.1); Hemoglobin 11.2 g/dL (12.9-16.9); Mean Corpuscular HGB Conc 30.8 g/dL (31.6-35.5); Mean Corpuscular Hemoglobin 28.3 pg (28.0-33.3); Mean Corpuscular Volume 91.9 fL (83.0-100.0); Mean Platelet Volume 10.5 fL (9.4-12.4); Platelet Count 192 K/mcL (140-400); Red Blood Count 3.96 M/mcL (4.19-5.50)
[2019-07-03 16:36] LABS: Heparin anti-factor XA UFH < 0.04 IU/mL (0.30-0.70)
[2019-07-03] MEDS: Heparin 25,000 UNIT/250 ML D5W 25,000 UNIT/250 ML IV.SOLN IVC SCH (16:36)
[2019-07-03 16:37] LABS: Prothrombin Time 11.6 Seconds (9.4-12.1)
[2019-07-03] MEDS ORDERED: Vancomycin (wt based) 1,000 MG VIAL IVPB SCH (17:00)
[2019-07-03] MEDS ORDERED: Nitroglycerin 0.4 MG TAB.SUBL SL PRN (17:23)
[2019-07-03] MEDS ORDERED: Ipratropium/Albuterol Neb 3 ML IH PRN (17:55)
[2019-07-03 19:07] LABS: BUN/Creatinine Ratio 25 (6-26); Blood Urea Nitrogen 61 mg/dL (8-23); eGFR For African Americans 31 (> 60); eGFR For Non-African Americans 26 (> 60)
[2019-07-03] MEDS ORDERED: Vancomycin 1 EACH in 0.9 % Sodium Chloride 250 ML IVPB SCH (20:00)
[2019-07-03] MEDS: Artificial Tears SOLN 15 ML BOTTLE BOTH EYES SCH (20:29)
[2019-07-03] MEDS: Melatonin 3 MG TABLET PO SCH (20:30)
[2019-07-03] MEDS: traZODone 50 MG TABLET PO SCH (20:30)
[2019-07-03] MEDS: Gabapentin 300 MG CAPSULE PO SCH (20:35)
[2019-07-03] MEDS: Gabapentin 100 MG CAPSULE PO SCH (20:35)
[2019-07-04] MEDS: Piperacillin/Tazobactam 3.375 GM in 0.9 % Sodium Chloride Mini Bag 100 ML IVPB SCH ×3 (00:15→15:13)
[2019-07-04 00:37] LABS: Hematocrit 30.5 % (37.5-50.1); Mean Corpuscular HGB Conc 31.5 g/dL (31.6-35.5); Mean Corpuscular Hemoglobin 29.2 pg (28.0-33.3); Mean Corpuscular Volume 92.7 fL (83.0-100.0); Mean Platelet Volume 10.8 fL (9.4-12.4); Platelet Count 159 K/mcL (140-400); Red Blood Count 3.29 M/mcL (4.19-5.50); Red Cell Distribution Width 15.4 % (11.5-14.5); White Blood Count 14.5 K/mcL (4.3-11.1)
[2019-07-04 00:38] LABS: Hemoglobin 9.6 g/dL (12.9-16.9)
[2019-07-04 00:47] LABS: Calcium 8.9 mg/dL (8.6-10.3); Magnesium 2.2 mg/dL (1.6-2.6); Potassium 5.8 mEq/L (3.5-5.1)
[2019-07-04 07:11] LABS: Hematocrit 30.1 % (37.5-50.1); Hemoglobin 9.2 g/dL (12.9-16.9)
[2019-07-04 07:21] LABS: Potassium 4.8 mEq/L (3.5-5.1)
[2019-07-04] MEDS: Aspirin Enteric Coated 81 MG Tablet PO SCH (08:45)
[2019-07-04] MEDS: Multivit/Ca/Min/Fe/FA 1 TAB TABLET PO SCH (08:45)
[2019-07-04] MEDS: Magnesium Oxide 400 MG TABLET PO SCH (08:45)
[2019-07-04] MEDS: carvediloL 6.25 MG TABLET PO SCH ×2 (08:45→17:20)
[2019-07-04] MEDS: Cholecalciferol (D-3) 1,000 UNIT (25MCG) TABLET PO SCH (08:45)
[2019-07-04] MEDS: Gabapentin 300 MG CAPSULE PO SCH ×2 (08:47→20:45)
[2019-07-04] MEDS: Gabapentin 100 MG CAPSULE PO SCH ×2 (08:48→20:46)
[2019-07-04] MEDS ORDERED: Spironolactone 25 MG TABLET PO SCH (09:00)
[2019-07-04] MEDS: Artificial Tears SOLN 15 ML BOTTLE BOTH EYES SCH ×3 (13:12→20:48)
[2019-07-04 16:43] LABS: Hematocrit 29.1 % (37.5-50.1); Hemoglobin 9.1 g/dL (12.9-16.9)
[2019-07-04] MEDS: Heparin 25,000 UNIT/250 ML D5W 25,000 UNIT/250 ML IV.SOLN IVC SCH (17:18)
[2019-07-04] MEDS: traZODone 50 MG TABLET PO SCH (20:46)
[2019-07-04] MEDS: Melatonin 3 MG TABLET PO SCH (20:46)
[2019-07-04] MEDS ORDERED: Perflutren Lipid Microsphere 1.3 ML in 0.9 % Sodium Chloride 8.7 ML IVP ONE (21:55)
[2019-07-04 22:17] LABS: Hematocrit 27.7 % (37.5-50.1); Hemoglobin 8.6 g/dL (12.9-16.9)
[2019-07-05] MEDS: Piperacillin/Tazobactam 3.375 GM in 0.9 % Sodium Chloride Mini Bag 100 ML IVPB SCH ×3 (00:54→16:39)
[2019-07-05] MEDS ORDERED: 0.9 % Sodium Chloride 250 ML IVC ONE (07:28)
[2019-07-05 07:35] LABS: Hematocrit 29.4 % (37.5-50.1); Hemoglobin 8.8 g/dL (12.9-16.9); Mean Corpuscular HGB Conc 29.9 g/dL (31.6-35.5); Mean Corpuscular Hemoglobin 27.8 pg (28.0-33.3); Mean Platelet Volume 10.6 fL (9.4-12.4); Platelet Count 152 K/mcL (140-400); Red Blood Count 3.16 M/mcL (4.19-5.50); Red Cell Distribution Width 15.6 % (11.5-14.5)
[2019-07-05] MEDS: Multivit/Ca/Min/Fe/FA 1 TAB TABLET PO SCH (09:11)
[2019-07-05] MEDS: Aspirin Enteric Coated 81 MG Tablet PO SCH (09:11)
[2019-07-05] MEDS: Artificial Tears SOLN 15 ML BOTTLE BOTH EYES SCH ×3 (09:11→19:57)
[2019-07-05] MEDS: Gabapentin 300 MG CAPSULE PO SCH ×2 (09:12→19:57)
[2019-07-05] MEDS: Cholecalciferol (D-3) 1,000 UNIT (25MCG) TABLET PO SCH (09:12)
[2019-07-05] MEDS: Magnesium Oxide 400 MG TABLET PO SCH (09:12)
[2019-07-05] MEDS: Gabapentin 100 MG CAPSULE PO SCH ×2 (09:12→19:57)
[2019-07-05] MEDS: carvediloL 6.25 MG TABLET PO SCH ×2 (09:13→16:38)
[2019-07-05 12:57] LABS: Calcium 9.2 mg/dL (8.6-10.3); Potassium 5.1 mEq/L (3.5-5.1)
[2019-07-05 13:57] LABS: % Iron Saturation 13 % (20-55); Iron 32 mcg/dL (65-175); Transferrin 177 mg/dL (203-362)
[2019-07-05 14:15] LABS: Ferritin 143 ng/mL (20-250)
[2019-07-05] MEDS ORDERED: SODIUM CHLORIDE/NAHCO3/KCL/PEG 4,000 ML SOLN.RECON PO ONE (17:00)
[2019-07-05] MEDS: Melatonin 3 MG TABLET PO SCH (19:57)
[2019-07-06] MEDS: Piperacillin/Tazobactam 3.375 GM in 0.9 % Sodium Chloride Mini Bag 100 ML IVPB SCH ×4 (00:01→23:04)
[2019-07-06] MEDS: traZODone 50 MG TABLET PO SCH ×2 (05:31→20:08)
[2019-07-06 06:19] LABS: Hematocrit 27.3 % (37.5-50.1); Hemoglobin 8.3 g/dL (12.9-16.9); Mean Corpuscular HGB Conc 30.4 g/dL (31.6-35.5); Mean Corpuscular Hemoglobin 28.4 pg (28.0-33.3); Mean Corpuscular Volume 93.5 fL (83.0-100.0); Mean Platelet Volume 9.8 fL (9.4-12.4); Platelet Count 141 K/mcL (140-400); Red Blood Count 2.92 M/mcL (4.19-5.50); Red Cell Distribution Width 15.6 % (11.5-14.5); White Blood Count 6.6 K/mcL (4.3-11.1)
[2019-07-06 06:54] LABS: Calcium 8.9 mg/dL (8.6-10.3); Potassium 4.8 mEq/L (3.5-5.1)
[2019-07-06] MEDS ORDERED: Iron Sucrose Complex 400 MG in 0.9 % Sodium Chloride 250 ML IVPB ONE (07:41)
[2019-07-06] MEDS: Aspirin Enteric Coated 81 MG Tablet PO SCH (07:54)
[2019-07-06] MEDS: Magnesium Oxide 400 MG TABLET PO SCH (07:55)
[2019-07-06] MEDS: carvediloL 6.25 MG TABLET PO SCH ×2 (07:55→17:48)
[2019-07-06] MEDS: Cholecalciferol (D-3) 1,000 UNIT (25MCG) TABLET PO SCH (07:55)
[2019-07-06] MEDS: Gabapentin 300 MG CAPSULE PO SCH ×2 (07:57→20:08)
[2019-07-06] MEDS: Multivit/Ca/Min/Fe/FA 1 TAB TABLET PO SCH (07:57)
[2019-07-06] MEDS ORDERED: Lidocaine -MPF 2% 2 ML VIAL ONE (07:57)
[2019-07-06] MEDS: Gabapentin 100 MG CAPSULE PO SCH ×2 (07:58→20:08)
[2019-07-06] MEDS: Artificial Tears SOLN 15 ML BOTTLE BOTH EYES SCH ×3 (10:40→20:08)
[2019-07-06] MEDS: Melatonin 3 MG TABLET PO SCH (20:08)
[2019-07-07 00:59] LABS: Hemoglobin 8.5 g/dL (12.9-16.9); Mean Corpuscular HGB Conc 31.5 g/dL (31.6-35.5); Mean Corpuscular Hemoglobin 29.2 pg (28.0-33.3); Mean Corpuscular Volume 92.8 fL (83.0-100.0); Mean Platelet Volume 10.5 fL (9.4-12.4); Platelet Count 152 K/mcL (140-400); Red Blood Count 2.91 M/mcL (4.19-5.50); Red Cell Distribution Width 15.4 % (11.5-14.5)
[2019-07-07 01:01] LABS: White Blood Count 6.6 K/mcL (4.3-11.1)
[2019-07-07 01:21] LABS: Calcium 9.2 mg/dL (8.6-10.3); Potassium 4.5 mEq/L (3.5-5.1)
[2019-07-07] MEDS: Gabapentin 100 MG CAPSULE PO SCH ×2 (08:28→20:01)
[2019-07-07] MEDS: Aspirin Enteric Coated 81 MG Tablet PO SCH (08:28)
[2019-07-07] MEDS: Gabapentin 300 MG CAPSULE PO SCH ×2 (08:28→20:00)
[2019-07-07] MEDS: carvediloL 6.25 MG TABLET PO SCH ×2 (08:30→16:23)
[2019-07-07] MEDS: Multivit/Ca/Min/Fe/FA 1 TAB TABLET PO SCH (08:31)
[2019-07-07] MEDS: Magnesium Oxide 400 MG TABLET PO SCH (08:31)
[2019-07-07] MEDS: Cholecalciferol (D-3) 1,000 UNIT (25MCG) TABLET PO SCH (08:32)
[2019-07-07] MEDS: Piperacillin/Tazobactam 3.375 GM in 0.9 % Sodium Chloride Mini Bag 100 ML IVPB SCH ×3 (08:34→23:28)
[2019-07-07] MEDS: Artificial Tears SOLN 15 ML BOTTLE BOTH EYES SCH ×3 (08:35→20:00)
[2019-07-07] MEDS: Melatonin 3 MG TABLET PO SCH (20:01)
[2019-07-07] MEDS: traZODone 50 MG TABLET PO SCH (20:01)
[2019-07-08] MEDS: Piperacillin/Tazobactam 3.375 GM in 0.9 % Sodium Chloride Mini Bag 100 ML IVPB SCH (07:34)
[2019-07-08] MEDS: Gabapentin 300 MG CAPSULE PO SCH (07:35)
[2019-07-08] MEDS: Multivit/Ca/Min/Fe/FA 1 TAB TABLET PO SCH (07:35)
[2019-07-08] MEDS: Gabapentin 100 MG CAPSULE PO SCH (07:35)
[2019-07-08] MEDS: carvediloL 6.25 MG TABLET PO SCH (07:35)
[2019-07-08] MEDS: Cholecalciferol (D-3) 1,000 UNIT (25MCG) TABLET PO SCH (07:35)
[2019-07-08] MEDS: Magnesium Oxide 400 MG TABLET PO SCH (07:35)
[2019-07-08] MEDS: Aspirin Enteric Coated 81 MG Tablet PO SCH (07:35)
[2019-07-08] MEDS: Artificial Tears SOLN 15 ML BOTTLE BOTH EYES SCH (07:36)
[2019-07-08] MEDS ORDERED: Torsemide 20 MG TABLET PO SCH (10:30)
[2019-07-08 15:36] VITALS: BP 165/78
== END 2019-07-08 16:48 | disposition home or self-care (01) | DRG 871 ==
LOC: EMEROOARM 15:18 → 2ANU 15:18 → SUATTDRO 17:00 → 2ANU 17:39
PROVIDERS: ADMIT Student in an Organized Health Care Education/Training Program; ATTEND Internal Medicine
PROC: ENDOEBX (2019-07-06 09:10)